=== PATIENT | male | born 1950 | race Caucasian/White ===

== ENCOUNTER 2018-02-03 06:34 | Outpatient (CLI) ==
--- NOTE | 2018-02-03 09:28 | ECHO2D ---
Date of Exam: 02/03/18 Ordering Physician: DR. DAWSON RIVERS Room #: OP Reason for Echo: LVH, HTN, CARDIOMEGALY M-Mode Normal Adult Results LV Dimensions Normal Adult Results AoV Opening excursions >1.6 >1.6 LVEDD-base- 3.5-5.8 5.3 Ao root dimensions 2.0-3.7 4.0 LVESD-base- 3.1-4.6 L. Atrium dimensions 1.9-3.8 5.6 Post. Wall thickness 0.8-1.1 1.4 IV septum (thickness) 0.7-1.2 1.4 Post. Wall excursion 0.72-1.3 NORMAL Septal motion 0.6 Systolic motion R. Ventricular cavity 1.5-2.0 NORMAL LVEF 60% 48% Paradoxical septal wall motion NORMAL 2-D : 2-D M Mode Echocardiogram was performed using apical four chamber and left parasternal long and short axis views. Mitral, tricuspid and aortic valves appear to be normal. Contractility of the left ventricle seems to be normal, so is the cavity size. Enlarged Left atrial cavity. Hypokinetic Septum. Aortic root appears to be normal. There is no pericardial effusion. There is no thrombus noted in the left ventricular or left aortic cavity. No mitral valve prolapse noted. M-MODE: MV: NORMAL AV: NORMAL TV: NORMAL PV: CHAMBER SIZE: ENLARGED LEFT ATRIAL CAVITY WALL MOTION: HYPOKINETIC SEPTUM PERICARDIUM: NORMAL INTERPRETATION: 1. LEFT VENTRICULAR HYPERTROPHY WITH ENLARGED LEFT ATRIAL CAVITY (5.6 CM2) 2. HYPOKINETIC SEPTUM WITH EJECTION FRACTION 48% 3. NORMAL VALVES MTDD
== END 2018-02-03 06:35 | disposition home or self-care (01) ==
LOC: CAR 06:34
PROVIDERS: ATTEND Internal Medicine
DX: I51.7 Cardiomegaly (principal); I10 Essential (primary) hypertension
CPT/HCPCS: 93005; 93010

== ENCOUNTER 2018-02-04 06:43 | Outpatient (CLI) | payer OTHER ==
--- NOTE | 2018-02-04 11:07 | NM ---
Cardiac Stress Test HISTORY: LVH, cardiomegaly, hypertension, shortness of breath. COMPARISON: None of this type. TECHNIQUE: Resting: The patient was injected with 3.5 mCi of thallium 201 chloride intravenously after which a "resting" SPECT study of the heart was performed. Stress: The patient was stressed using a Pacheco protocol and at the appropriate time injected with 25 mCi of 99m technetium Sestamibi (Cardiolite) after which a "stress" SPECT study of the heart was per formed. Gated images of the heart were also obtained to assess wall motion and calculate ejection fra ction. For details of the stress protocol employed, reference is made to the separate report of the performing physician. FINDINGS: The stress perfusion images demonstrate a generally uniform distribution of activity in th e left ventricular myocardium. There is modestly decreased activity in a small segment of the distal anterior wall in the apex with equivocal redistribution at rest. The resting perfusion images demonst rate no evidence of significant redistribution/ischemia elsewhere. The left ventricular ejection fraction (LVEF) is 58 %. IMPRESSION: 1. Left ventricular myocardial perfusion demonstrates a small region of equivocal redistribution in the distal anterior wall near the apex. 2. The left ventricular ejection fraction (LVEF) is 58 %.
== END 2018-02-04 06:44 | disposition home or self-care (01) ==
LOC: CAR 06:43
PROVIDERS: ATTEND Internal Medicine
DX: R06.02 Shortness of breath (principal); I10 Essential (primary) hypertension; I51.7 Cardiomegaly

== ENCOUNTER 2018-02-24 07:19 | Day surgery (SDC) | payer OTHER ==
[2018-02-24 07:51] VITALS: TEMP 98.6
[2018-02-24] MEDS ORDERED: VERSED ONE (09:49)
[2018-02-24] MEDS ORDERED: DIPRIVAN 20 ML VIAL IVP ONE (09:49)
--- NOTE | 2018-02-25 09:35 | OP ---
INDICATIONS FOR PROCEDURE: 67-year-old gentleman presents for colonoscopy exam. He has a past history of adenomatous polyps with the last colonoscopy greater than 3 years ago. MEDICATIONS: SEE ANESTHESIA NOTES. PROCEDURE: COLONOSCOPY, SNARE POLYPECTOMY. REPORT: The risks, benefits, alternatives and limitations were discussed in detail with the patient. Informed consent was obtained. After adequate sedation was achieved, a digital rectal exam revealed good tone, no masses. The colonoscope was introduced into the rectum and advanced under direct visual guidance to the cecum. The cecum was identified by the appendiceal orifice and IC valve. I then slowly withdrew the scope in a circumferential manner examining the mucosa quite carefully. I looked on the proximal and distal side of folds and flexures as best as possible. I was able to retroflex the scope in the right colon and left colon to increase visualization. In the ascending colon and proximal transverse colon I encountered three polyps. These were all semi sessile and ranged from 6 to 7 mm approximately. The three polyps were removed by snare technique and placed in the same pathology jar. In the distal transverse colon there was a 7 mm semi sessile polyp that I removed by snare technique. On retroflex view of the anal canal there were small internal hemorrhoids. No other abnormalities were noted. The prep was good. The withdrawal time is 18 minutes. The patient tolerated the procedure well with stable vital signs and pulse oximetry throughout. IMPRESSION: 1. FOUR (4) POLYPS REMOVED 2. INTERNAL HEMORRHOIDS RECOMMENDATIONS: 1. High fiber diet. 2. Office visit as needed. 3. Await pathology results. If everything is benign as expected, will recommend repeat colonoscopy examination again in three years, sooner if signs or symptoms would indicate otherwise. CC: DR. SILVESTRE CAAL
[2018-02-26 11:56] VITALS: BP 123/56
== END 2018-02-24 11:30 | disposition home or self-care (01) ==
LOC: SURG 07:19
PROVIDERS: ATTEND Internal Medicine Gastroenterology
DX: Z86.010 Personal history of colon polyps (principal); K63.5 Polyp of colon; D12.2 Benign neoplasm of ascending colon; D12.3 Benign neoplasm of transverse colon

== ENCOUNTER 2018-04-02 08:20 | Outpatient (CLI) ==
--- NOTE | 2018-04-02 09:01 | DI ---
EXAM: Threeviews of the thoracic spine. History: Thoracic back pain. Findings: No acute fracture or subluxation of the thoracic spine. Mild to moderate multilevel disc space narrowing with endplate sclerosis and a few prominent anterior osteophytes. Atherosclerotic va scular calcifications. Impression: 1. No acute osseous abnormality of the thoracic spine. 2. Mild to moderate degenerative disc disease
--- NOTE | 2018-04-02 09:04 | US ---
EXAM: Renal ultrasound. History: Back pain, diabetes. Comparison: CT abdomen pelvis 03/28/2014 Technique: Multiple sonographic images through the kidneys were obtained. Color duplex Doppler was used to interrogate vascular flow. Findings: Neither ureteral jet was visualized within the bladder. Bladder wall is thickened anteriorly. The right kidney measures 12 cm in long length demonstrating normal cortical echogenicity without gisela dence for hydronephrosis or shadowing calculus. 1.5 cm anechoic right renal cyst. The left kidney measures 11.4 cm in long length demonstrating normal cortical echogenicity without ev idence for hydronephrosis, mass or shadowing calculus. Impression: 1. No hydronephrosis. 2. Simple right renal cyst. 3. Nonspecific anterior bladder wall thickening could be due to cystitis or malignancy. Further hansel luation recommended.
== END 2018-04-02 08:21 | disposition home or self-care (01) ==
LOC: RAD 08:20
PROVIDERS: ATTEND Internal Medicine
DX: M54.9 Dorsalgia, unspecified (principal); E11.9 Type 2 diabetes mellitus without complications

== ENCOUNTER 2018-04-08 10:59 | Outpatient (CLI) | payer OTHER | END 2018-04-08 11:00 | disposition home or self-care (01) | LOC: LAB 10:59 | PROVIDERS: ATTEND Internal Medicine | DX: N32.9 Bladder disorder, unspecified (principal) | CPT/HCPCS: 81001; 81050; 82575; 84156 ==

== ENCOUNTER 2018-05-31 12:56 | Inpatient (IN) ==
--- NOTE | 2018-05-31 13:08 | ED.PDOC ---
General ED Provider: Dr. ERYN WALLS Chief Complaint: Arrhythmia Stated Complaint: Pause in Heart Rate. Was undergoing work up for episodes of dizziness, near syncopal attacks so was hooked up to an event monitor. Apparently monitor company noted a cardiac event this morning around 0630 in which there was a 3 sec pause. Asymptomatic as he was sleeping. PMHx.Chronic afib with controlled Vent Response. Several episodes of Severe Vertigo, dizziness and near syncopal/total syncopal events. Events associated with nausea, vomiting and loss of bladder control. States previous Cardiac Cath normal. No previous cardiac E study completed. Dr Rivers advised pt to come to ER for assessment Time Seen by Physician: 13:05 Mode of Arrival: Walk-In Information Source: Patient, Family Exam Limitations: No limitations Primary Care Provider: DAWSON RIVERS Referred to ED by: PCP, Other Nursing and Triage Documentation Reviewed and Agree: Yes Does patient meet sepsis criteria?: No System Inflammatory Response Syndrome: Not Applicable Sepsis Protocol: For patient's 13 years and over: Temp is 96.8 and below OR 101 and greater Pulse >90 BPM Resp >20/minute Acutely Altered Mental Status Are patient's symptoms suggestive of a new infection, such as: -Pneumonia -Skin, Soft Tissue -Endocarditis -UTI -Bone, Joint Infection -Implantable Device -Acute Abdominal Infection -Wound Infection -Meningitis -Blood Stream Catheter Infection -Unknown Cardiovascular Complaint Exam - Palpitations Complaint/Exam Onset/Duration: Several months Symptoms Are: Still present Timing: Intermittent Initial Severity: Moderate Current Severity: Mild Character: Reports: Irregular, Skipped beats Aggravating: Reports: Exertion, Position Alleviating: Reports: None Associated Signs and Symptoms: Reports: Lightheadedness, Dizziness, Syncope, Shortness of breath, Nausea Related History: Similar episode Related Surgical History: Reports: None Review of Systems - Review Of Systems Constitutional: Reports: No symptoms Eyes: Reports: No symptoms Ears, Nose, Mouth, Throat: Reports: No symptoms Respiratory: Reports: No symptoms, Other Cardiac: Reports: Irregular heart rate, Lightheadedness, Palpitations, Syncope GI: Reports: No symptoms : Reports: No symptoms Musculoskeletal: Reports: No symptoms Skin: Reports: No symptoms Neurological: Reports: No symptoms Endocrine: Reports: No symptoms Hematologic/Lymphatic: Reports: No symptoms All Other Systems: Reviewed and Negative Past Medical History - Past Medical History Endocrine: Reports: DM 2, Dyslipidemia Cardiovascular: Reports: Hypertension, CHF, A-Fib Respiratory: Reports: None Hematological: Reports: None Gastrointestinal: Reports: None Genitourinary: Reports: None Neuro/Psych: Reports: None Musculoskeletal: Reports: None Cancer: Reports: None - Surgical History General Surgical History: Reports: Unknown - Family History Family History: Reports: Unknown - Social History Hx Substance Use: No Physical Exam - Physical Exam Appearance: Well-appearing, No pain distress, Well-nourished Eyes: KENNY, EOMI, Conjunctiva clear ENT: Ears normal, Nose normal, Oropharynx normal Respiratory: Airway patent, Breath sounds clear, Breath sounds equal, Respirations nonlabored Cardiovascular: RRR, Pulses normal, No rub, No murmur GI/: Soft, Nontender, No masses, Bowel sounds normal, No Organomegaly Musculoskeletal: Normal strength, ROM intact, No edema, No calf tenderness Skin: Warm, Dry, Normal color Neurological: Sensation intact, Motor intact, Reflexes intact, Cranial nerves intact, Alert, Oriented Psychiatric: Affect appropriate, Mood appropriate Critical Care Note - Critical Care Note Total Time (mins): 60 Course - Course Hematology/Chemistry: 05/31/18 13:30 05/31/18 13:30 Orders, Labs, Meds: Lab Review 05/31/18 05/31/18 05/31/18 13:30 13:30 13:30 WBC 9.50 RBC 4.45 L Hgb 13.4 L Hct 39.9 L MCV 89.7 MCH 30.1 MCHC 33.6 RDW Coeff of Placido 14.1 Plt Count 223 Immature Gran % (Auto) 0.2 Neut % (Auto) 61.7 Lymph % (Auto) 30.6 [place] % (Auto) 5.6 Eos % (Auto) 1.4 Baso % (Auto) 0.5 Immature Gran # (Auto) 0.0 Neut # (Auto) 5.9 Lymph # (Auto) 2.9 [place] # (Auto) 0.5 Eos # (Auto) 0.1 Baso # (Auto) 0.1 PT INR Sodium 137.0 Potassium 4.04 Chloride 101.3 Carbon Dioxide 28.2 Anion Gap 11.54 BUN 25.1 H Creatinine 1.33 H Estimated GFR (MDRD) 54.00 BUN/Creatinine Ratio 18.87 Glucose 139.3 H Calcium 9.20 Magnesium Total Bilirubin 0.66 AST 30.4 ALT 23.4 Alkaline Phosphatase 31.7 L Troponin I Total Protein 7.56 Albumin 4.16 Globulin 3.40 Albumin/Globulin Ratio 1.22 Digoxin < 0.40 L 05/31/18 05/31/18 13:30 13:30 WBC RBC Hgb Hct MCV MCH MCHC RDW Coeff of [place]acido Plt Count Immature Gran % (Auto) Neut % (Auto) Lymph % (Auto) [place] % (Auto) Eos % (Auto) Baso % (Auto) Immature Gran # (Auto) Neut # (Auto) Lymph # (Auto) [place] # (Auto) Eos # (Auto) Baso # (Auto) PT 19.5 H INR 1.99 Sodium Potassium Chloride Carbon Dioxide Anion Gap BUN Creatinine Estimated GFR (MDRD) BUN/Creatinine Ratio Glucose Calcium Magnesium 1.53 L Total Bilirubin AST ALT Alkaline Phosphatase Troponin I < 0.012 Total Protein Albumin Globulin Albumin/Globulin Ratio Digoxin Orders Category Date Time Status EKG-(ED ONLY) Stat CARDIO 05/31/18 13:31 Completed CBC W/ AUTO DIFF Stat LAB 05/31/18 13:30 Completed CMP [COMPREHENSIVE METABOLIC PANEL] Stat LAB 05/31/18 13:30 Completed DIGOXIN Stat LAB 05/31/18 13:30 Completed MAGNESIUM Stat LAB 05/31/18 13:30 Completed PT WITH INR Stat LAB 05/31/18 13:30 Completed TROPONIN I Stat LAB 05/31/18 13:30 Completed CHEST, 1V AP ONLY Stat RADS 05/31/18 13:33 Completed Vital Signs: Temp Pulse Resp BP Pulse Ox 05/31/18 12:57 98.4 F 78 20 174/89 H 94 L INGRID Risk Score INGRID Risk Score: Risk Score Odds of by 30D 0 0.1 (0.1-0.2) 1 0.3 (0.2-0.3) 2 0.4 (0.3-0.5) 3 0.7 (0.6-0.9) 4 1.2 (1.0-1.5) 5 2.2 (1.9-2.6) 6 3.0 (2.5-3.6) 7 4.8 (3.8-6.1) Departure - Departure Time of Disposition: 15:30 Disposition: ADMITTED INPATIENT Discharge Problem: Intermittent complete heart block, Atrial fibrillation, Hx of syncope Condition: Good Pt referred to PMD for follow-up: Yes IPMP verified?: Yes Allergies/Adverse Reactions: Allergies cortisone [Cortisone] Adverse Reaction (Verified 05/31/18 13:16) Penicillins Adverse Reaction (Verified 05/31/18 13:16) Home Medications: Ambulatory Orders Digoxin 250 mcg PO DAILY 07/12/13 Enalapril Maleate 2.5 mg PO DAILY 07/12/13 Fenofibrate 160 mg PO DAILY 07/12/13 Furosemide [Lasix] 40 mg PO DAILY 07/12/13 Hydrocodone Bit/Acetaminophen [[place]omer 10-325] 1 tab PO BID PRN 07/12/13 Metformin HCl 1,000 mg PO DAILY 07/12/13 Simvastatin 20 mg PO DAILY 07/12/13 Warfarin Sodium [Coumadin] 6 mg PO DAILY 07/12/13 Insulin Degludec [Tresiba Flextouch U-100] 100 unit SQ DIRECTED 05/31/18 Ranitidine HCl [Zantac] 150 mg PO QDAC 05/31/18 Sitagliptin Phosphate [Januvia] 100 mg PO DAILY 05/31/18 Disposition Discussed With: Patient, Family, Other (Dr Rivers discussed case- requests admisson to observe for additional cardiac pauses)
--- NOTE | 2018-05-31 13:58 | DI ---
EXAM: Single view of the chest. History: Chest pain. Findings: Heart size is normal. No focal consolidation. No appreciable pleural fluid and no pneumo thorax. No acute osseous abnormalities. Impression: No acute cardiopulmonary process
[2018-05-31] MEDS ORDERED: TYLENOL PO PRN (16:43)
[2018-05-31] MEDS ORDERED: NORCO 10-325 PO PRN (16:51)
[2018-05-31] MEDS ORDERED: NON-FORMULARY MEDICATION (Insulin Degludec [Tresiba Flextouch U-100] 100 UNIT) SQ SCH (17:00)
[2018-05-31] MEDS ORDERED: LOVENOX SUBCUT SCH (17:00)
[2018-05-31] MEDS ORDERED: NON-FORMULARY MEDICATION (Warfarin Sodium [Coumadin] 6 MG) PO SCH (17:00)
[2018-05-31 17:55] VITALS: BMI 33.3
[2018-05-31] MEDS ORDERED: COUMADIN ONE (18:35)
[2018-05-31] MEDS ORDERED: OMEGA-3 FISH OIL ONE (20:01)
[2018-05-31] MEDS ORDERED: ZYLOPRIM ONE (20:01)
[2018-05-31] MEDS ORDERED: NORCO 5-325 ONE (20:01)
[2018-05-31] MEDS ORDERED: K-DUR ONE (20:01)
[2018-05-31] MEDS ORDERED: LYRICA ONE (20:02)
[2018-05-31] MEDS ORDERED: SOLU-MEDROL 125 MG ONE (20:02)
[2018-05-31] MEDS ORDERED: SYMBICORT 160-4.5 MCG INHALER IH ONE (20:02)
[2018-05-31] MEDS ORDERED: ANTIVERT ONE (20:02)
[2018-06-01] MEDS ORDERED: NON-FORMULARY MEDICATION (Metformin Hcl [Metformin Hcl] 1,000 MG) PO SCH (09:00)
[2018-06-01] MEDS ORDERED: ENALAPRIL MALEATE 2.5 MG PO SCH (09:00)
[2018-06-01] MEDS ORDERED: NON-FORMULARY MEDICATION (Sitagliptin Phosphate [Januvia] 100 MG) PO SCH (09:00)
[2018-06-01] MEDS ORDERED: NON-FORMULARY MEDICATION (Simvastatin [Simvastatin] 20 MG) PO SCH (09:00)
[2018-06-01] MEDS: LASIX TAB PO SCH (09:18)
[2018-06-01] MEDS: VASOTEC PO SCH (09:18)
[2018-06-01] MEDS: JANUVIA PO SCH (09:18)
[2018-06-01] MEDS: GLUCOPHAGE PO SCH (09:18)
[2018-06-01] MEDS: ZOCOR PO SCH (09:19)
[2018-06-01] MEDS: COUMADIN PO SCH (09:19)
[2018-06-01] MEDS: NON-FORMULARY MEDICATION (Insulin Degludec [Tresiba Flextouch U-100] 100 UNIT) SQ SCH (10:01)
--- NOTE | 2018-06-01 12:50 | PCM.PROG ---
Attending Provider: ATTENDING PROVIDER: Dr. DAWSON RIVERS This patient is seen with Dania Castanon, Nurse Practitioner. DATE OF SERVICE: 06/01/18 SUBJECTIVE: This 67 year old WHITE/ M was hospitalized 05/31/18. The patient is resting comfortably. There was a three second pause noted while the patient was at home and sleeping, therefore he was asymptomatic. Over last two month he has had two episodes with nausea, vomit and loss of bowel. He is now wearing cardiac event monitor for 30 days. He has a history of atrial fibrillation. REVIEW OF SYSTEMS: CONSTITUTIONAL: No night sweats. No fatigue, malaise, lethargy. No fever or chills. HEENT: Eyes: No visual changes. No eye pain. No eye discharge. ENT: No runny nose. No epistaxis. No sinus pain. No odynophagia. No congestion. RESPIRATORY: No cough, no congestion. No hemoptysis. No shortness of breath. CARDIOVASCULAR: No angina symptoms. No CHF symptoms. No atypical chest pain for CAD. No palpitations. No orthopnea.. GASTROINTESTINAL: No abdominal pain. No nausea or vomiting. No diarrhea or constipation. No hematemesis. No hematochezia. GENITOURINARY: No urgency. No frequency. No dysuria. No hematuria. No obstructive symptoms. No discharge. No pain. No significant abnormal bleeding. MUSCULOSKELETAL: No musculoskeletal pain; no joint swelling. Episodes of weakness. NEUROLOGICAL: Awake, alert, oriented to time, place and person. No headache. No neck pain. No syncope. No seizures. No dizziness. PSYCHIATRIC: Not anxious. No depression. No suicidal thoughts. No homicidal thoughts. SKIN: No rash. No lesions. No wounds. ENDOCRINE: No unexplained weight loss. No weight gain. HEMATOLOGIC/LYMPHATIC: No anemia. No purpura. No petechiae. No prolonged or excessive bleeding. No palpable lymph nodes. PHYSICAL EXAMINATION: GENERAL: The patient is awake, alert and oriented, lying/sitting in bed in no distress. VITAL SIGNS: Temperature 97.8 F, Pulse 55, Respiratory Rate 18, BP 93/56, Pulse Ox 98% HEENT: Head normocephalic, atraumatic. Eyes: Extraocular muscles are intact. Pupils are equal, round and reactive to light and accommodation. Ears: No lesions. Nose appeared normal. Throat: No exudate or erythema. NECK: Supple. No JVD, no carotid bruit. No lymphadenopathy or thyromegaly. LUNGS: Clear to auscultation. Percussion note normal. Chest symmetrical. HEART: Irregular rate rate. S1, S2, no S3. No murmurs. No cyanosis or clubbing. No ascites. Pulses: Dorsalis pedis and posterior tibial pulses +1 to +2 both sides. ABDOMEN: Soft. Non-tender. Bowel sounds active. No CVA tenderness. No mass felt. EXTREMITIES: No edema. Full range of motion of all extremities, equal. NEUROLOGIC: No focal deficit. Cranial nerves II through XII are grossly intact. No headache, no double vision or headache. SKIN: Not dry. Intact. Turgor-normal. LYMPHATIC: No palpable lymph nodes/no lymphedema. MUSCULOSKELETAL: Normal joints with no swelling. Muscle tone is normal. LAB REVIEW: 06/01/18 06:42 06/01/18 06:42 06/01/18 06:42: PT 20.5 H, INR 2.09 06/01/18 06:42: Sodium 136.2, Potassium 3.65, Chloride 101.9, Carbon Dioxide 30.0, Anion Gap 7.95, BUN 20.6 H, Creatinine 1.20 H, Estimated GFR (MDRD) 61.00 , BUN/Creatinine Ratio 17.16, Glucose 120.3 H, Calcium 8.57, Total Bilirubin 0.68, AST 25.0, ALT 19.3, Alkaline Phosphatase 24.8 L, Troponin I < 0.012, Total Protein 6.61, Albumin 3.53, Globulin 3.08, Albumin/Globulin Ratio 1.14 06/01/18 06:42: WBC 7.74, RBC 4.24 L, Hgb 12.6 L, Hct 38.0 L, MCV 89.6, MCH 29.7 , MCHC 33.2, RDW Coeff of Placido 14.1, Plt Count 207, Immature Gran % (Auto) 0.1, Neut % (Auto) 52.6, Lymph % (Auto) 39.0, [place] % (Auto) 5.9, Eos % (Auto) 1.9, Baso % (Auto) 0.5, Immature Gran # (Auto) 0.0, Neut # (Auto) 4.1, Lymph # (Auto ) 3.0, [place] # (Auto) 0.5, Eos # (Auto) 0.2, Baso # (Auto) 0.0 05/31/18 22:40: Troponin I < 0.012 05/31/18 13:30: Magnesium 1.53 L, Troponin I < 0.012 05/31/18 13:30: PT 19.5 H, INR 1.99 05/31/18 13:30: Digoxin < 0.40 L 05/31/18 13:30: Sodium 137.0, Potassium 4.04, Chloride 101.3, Carbon Dioxide 28.2, Anion Gap 11.54, BUN 25.1 H, Creatinine 1.33 H, Estimated GFR (MDRD) 54.00 , BUN/Creatinine Ratio 18.87, Glucose 139.3 H, Calcium 9.20, Total Bilirubin 0.66, AST 30.4, ALT 23.4, Alkaline Phosphatase 31.7 L, Total Protein 7.56, Albumin 4.16, Globulin 3.40, Albumin/Globulin Ratio 1.22 05/31/18 13:30: WBC 9.50, RBC 4.45 L, Hgb 13.4 L, Hct 39.9 L, MCV 89.7, MCH 30.1 , MCHC 33.6, RDW Coeff of Placido 14.1, Plt Count 223, Immature Gran % (Auto) 0.2, Neut % (Auto) 61.7, Lymph % (Auto) 30.6, [place] % (Auto) 5.6, Eos % (Auto) 1.4, Baso % (Auto) 0.5, Immature Gran # (Auto) 0.0, Neut # (Auto) 5.9, Lymph # (Auto ) 2.9, [place] # (Auto) 0.5, Eos # (Auto) 0.1, Baso # (Auto) 0.1 ASSESSMENT: Please see below. 1. Atrial fibrillation with intermittent pauses 2. Positive stress test in January, refused Cardiac Cath 3. Currently awaiting appointment with [facility] 4. Hypertension 5. Diabetes Mellitus, type 2 PLAN: 1. Continue holding Digoxin 2. T4/TSH 3. D/C Holter monitor Plan and coordination of the patient's care discussed in the presence of Cattyman and nurse. SCRIBED BY: FLORIN MCKEON Mineral Surveying Technician scribed while in presence of service performed by Dr. Rivers/Dania Castanon APRN on 06/01/18 ([id number])
[2018-06-01] MEDS ORDERED: COUMADIN PO SCH (17:00)
[2018-06-02] MEDS: LASIX TAB PO SCH (05:46)
[2018-06-02] MEDS: NON-FORMULARY MEDICATION (Insulin Degludec [Tresiba Flextouch U-100] 100 UNIT) SQ SCH (08:19)
[2018-06-02] MEDS: VASOTEC PO SCH (08:21)
[2018-06-02] MEDS: GLUCOPHAGE PO SCH (08:21)
[2018-06-02] MEDS: ZOCOR PO SCH (08:21)
[2018-06-02] MEDS: JANUVIA PO SCH (08:21)
[2018-06-02] MEDS: COUMADIN PO SCH (08:22)
[2018-06-03] MEDS: LASIX TAB PO SCH (05:47)
[2018-06-03 06:19] VITALS: BP 102/66; TEMP 97.8
--- NOTE | 2018-06-03 09:27 | PCM.PROG ---
Attending Provider: ATTENDING PROVIDER: Dr. DAWSON RIVERS This patient is seen with Dania Castanon, Nurse Practitioner. DATE OF SERVICE: 06/03/18 SUBJECTIVE: This 67 year old WHITE/ M was hospitalized 05/31/18. The patient is resting comfortably. Telemetry showed two pauses greater than 3 seconds. The patient has been eating well. The patient has been asymptomatic since admission. He has an appointment with business travel consultant this Friday. REVIEW OF SYSTEMS: CONSTITUTIONAL: No night sweats. No fatigue, malaise, lethargy. No fever or chills. HEENT: Eyes: No visual changes. No eye pain. No eye discharge. ENT: No runny nose. No epistaxis. No sinus pain. No odynophagia. No congestion. RESPIRATORY: No cough, no congestion. No hemoptysis. No shortness of breath. CARDIOVASCULAR: No angina symptoms. No CHF symptoms. No atypical chest pain for CAD. No palpitations. No orthopnea.. GASTROINTESTINAL: No abdominal pain. No nausea or vomiting. No diarrhea or constipation. No hematemesis. No hematochezia. GENITOURINARY: No urgency. No frequency. No dysuria. No hematuria. No obstructive symptoms. No discharge. No pain. No significant abnormal bleeding. MUSCULOSKELETAL: No musculoskeletal pain; no joint swelling. NEUROLOGICAL: Awake, alert, oriented to time, place and person. No headache. No neck pain. No syncope. No seizures. No dizziness. PSYCHIATRIC: Not anxious. No depression. No suicidal thoughts. No homicidal thoughts. SKIN: No rash. No lesions. No wounds. ENDOCRINE: No unexplained weight loss. No weight gain. HEMATOLOGIC/LYMPHATIC: No anemia. No purpura. No petechiae. No prolonged or excessive bleeding. No palpable lymph nodes. PHYSICAL EXAMINATION: GENERAL: The patient is awake, alert and oriented, lying in bed in no distress. VITAL SIGNS: Temperature 97.8 F, Pulse 64, Respiratory Rate 22, BP 102/66, Pulse Ox 98% HEENT: Head normocephalic, atraumatic. Eyes: Extraocular muscles are intact. Pupils are equal, round and reactive to light and accommodation. Ears: No lesions. Nose appeared normal. Throat: No exudate or erythema. NECK: Supple. No JVD, no carotid bruit. No lymphadenopathy or thyromegaly. LUNGS: Clear to auscultation. Percussion note normal. Chest symmetrical. HEART: Irregular heart rate. S1, S2, no S3. No murmurs. No cyanosis or clubbing. No ascites. Pulses: Dorsalis pedis and posterior tibial pulses +1 to +2 both sides. ABDOMEN: Soft. Non-tender. Bowel sounds active. No CVA tenderness. No mass felt. EXTREMITIES: No edema. Full range of motion of all extremities, equal. NEUROLOGIC: No focal deficit. Cranial nerves II through XII are grossly intact. No headache, no double vision or headache. SKIN: Not dry. Intact. Turgor-normal. LYMPHATIC: No palpable lymph nodes/no lymphedema. MUSCULOSKELETAL: Normal joints with no swelling. Muscle tone is normal. LAB REVIEW: 06/03/18 04:50 06/03/18 04:50 06/03/18 04:50: Sodium 138.3, Potassium 3.82, Chloride 105.0, Carbon Dioxide 28.8, Anion Gap 8.32, BUN 18.8, Creatinine 1.17 H, Estimated GFR (MDRD) 62.00, BUN/Creatinine Ratio 16.06, Glucose 118.7 H, Calcium 8.50, Total Bilirubin 0.40 , AST 19.1, ALT 17.8, Alkaline Phosphatase 24.6 L, Total Protein 6.43, Albumin 3.56, Globulin 2.87, Albumin/Globulin Ratio 1.24 06/03/18 04:50: WBC 9.11, RBC 4.22 L, Hgb 12.4 L, Hct 38.3 L, MCV 90.8, MCH 29.4 , MCHC 32.4, RDW Coeff of [place]ac[place] 13.9, Plt Count 207, Immature Gran % (Auto) 0.3, Neut % (Auto) 53.4, Lymph % (Auto) 38.4, [place] % (Auto) 5.9, Eos % (Auto) 1.6, Baso % (Auto) 0.4, Immature Gran # (Auto) 0.0, Neut # (Auto) 4.9, Lymph # (Auto ) 3.5 H, [place] # (Auto) 0.5, Eos # (Auto) 0.2, Baso # (Auto) 0.0 ASSESSMENT: Please see below. 1. Atrial fibrillation with intermittent pauses 2. Near syncopal episode 3. 3rd degree heart block 4. Coronary artery disease previously refused Cath. 5. Hypertension 6. Diabetes Mellitus, type 2 PLAN: 1. No Digoxin 2. No driving 3. Appointment with [facility] Friday at 930 4. Continue 30 day cardiac event monitoring 5. Discharge home. Plan and coordination of the patient's care discussed in the presence of Internal Affairs Investigator and nurse. SCRIBED BY: FLORIN MCKEON Metal Box Maker scribed while in presence of service performed by Dr. Rivers/Dania Castanon APRN on 06/03/18 ([id number])
[2018-06-03] MEDS: JANUVIA PO SCH (09:59)
[2018-06-03] MEDS: NON-FORMULARY MEDICATION (Insulin Degludec [Tresiba Flextouch U-100] 100 UNIT) SQ SCH (09:59)
[2018-06-03] MEDS: ZOCOR PO SCH (10:00)
[2018-06-03] MEDS: GLUCOPHAGE PO SCH (10:00)
[2018-06-03] MEDS: VASOTEC PO SCH (10:00)
[2018-06-03] MEDS: COUMADIN PO SCH (10:04)
--- NOTE | 2018-06-03 11:53 | CM.DICTOOL ---
ADMISSION: 05/31/18 16:16 DISCHARGE: 2018 DATE OF SERVICE: 06/03/18 FINAL DIAGNOSIS A-FIB WITH INTERMITTENT PAUSES (2 TO 3.5 SECONDS) H/O SYNCOPAL EPISODES H/O POSITIVE STRESS SESTAMIBI (REFUSED CATH) HISTORY OF: DM TYPE 2 DYSLIPIDEMIA HTN CHF S/P BILATERAL CATARACT SURGERY DATE UNKNOWN BRAIN ANEURYSM 2003 TIA X 3 DVT RIGHT LEG 2006 PNEUMONIA 2006 S/P HIATAL HERNIA REPAIR 2008 S/P CHOLECYSTECTOMY 2008 SCIATICA NON-COMPLIANCE LAST VITALS Temp Pulse Resp BP Pulse Ox 97.8 F 64 22 102/66 98 06/03/18 06:00 06/03/18 06:00 06/03/18 06:00 06/03/18 06:00 06/03/18 06:00 TAKE THESE MEDICATIONS AT HOME Hydrocodone Bitart/Acetaminophen (Bee 10-325) 1 tab PO BID PRN PRN Reason: Pain Enalapril Maleate (Vasotec) 2.5 mg PO DAILY [facility] Last Admin: 06/03/18 10:00 Dose: 2.5 mg Furosemide (Lasix Tab) 40 mg PO QDAC [facility] Last Admin: 06/03/18 05:47 Dose: 40 mg Metformin HCl (Glucophage) 1,000 mg PO DAILYWM [facility] Last Admin: 06/03/18 10:00 Dose: 1,000 mg Non-Formulary Medication (Insulin Degludec [Tresiba Flextouch U-100]) 100 unit SQ DAILY [facility] Last Admin: 06/03/18 09:59 Dose: 55 unit Simvastatin (Zocor) 20 mg PO DAILY [facility] Last Admin: 06/03/18 10:00 Dose: 20 mg Sitagliptin Phosphate (Januvia) 100 mg PO DAILY [facility] Last Admin: 06/03/18 09:59 Dose: 100 mg Fenofibrate 160 mg PO DAILY [facility] Last Admin: Zantac 150 mg PO QDAC Last Admin: Warfarin Sodium (Coumadin) 6 mg PO 0900 [facility] Last Admin: 06/03/18 10:04 Dose: 6 mg ALLERGIES cortisone [Cortisone] Adverse Reaction (Verified 05/31/18 13:16) Penicillins Adverse Reaction (Verified 05/31/18 13:16) DISCONTINUED MEDICATIONS DIGOXIN (LANOXIN) NEW PRESCRIPTIONS: NONE SMOKING: NOT APPLICABLE DISEASE SPECIFIC EDUCATION: NEAR SYNCOPE MEDICATION CHANGE NO DRIVING LAB REVIEW: 06/03/18 04:50 06/03/18 04:50 06/03/18 05:20: PT 19.8 H, INR 2.02 06/03/18 04:50: Sodium 138.3, Potassium 3.82, Chloride 105.0, Carbon Dioxide 28.8, Anion Gap 8.32, BUN 18.8, Creatinine 1.17 H, Estimated GFR (MDRD) 62.00, BUN/Creatinine Ratio 16.06, Glucose 118.7 H, Calcium 8.50, Total Bilirubin 0.40 , AST 19.1, ALT 17.8, Alkaline Phosphatase 24.6 L, Total Protein 6.43, Albumin 3.56, Globulin 2.87, Albumin/Globulin Ratio 1.24 06/03/18 04:50: WBC 9.11, RBC 4.22 L, Hgb 12.4 L, Hct 38.3 L, MCV 90.8, MCH 29.4 , MCHC 32.4, RDW Coeff of Placido 13.9, Plt Count 207, Immature Gran % (Auto) 0.3, Neut % (Auto) 53.4, Lymph % (Auto) 38.4, [place] % (Auto) 5.9, Eos % (Auto) 1.6, Baso % (Auto) 0.4, Immature Gran # (Auto) 0.0, Neut # (Auto) 4.9, Lymph # (Auto ) 3.5 H, [place] # (Auto) 0.5, Eos # (Auto) 0.2, Baso # (Auto) 0.0 PLAN: DISCHARGE HOME DIET: CONSISTENT CARBOHYDATES OR CALORIE COUNT FOLLOWED AT HOME ACTIVITY: GRADUALLY RESUME TOLERATED CHANGE POSITIONS SLOWLY NO DRIVING CONTINUE TO WEAR THE 30 DAY EVENT MONITOR UNTIL TIME FOR REMOVAL PLEASE KEEP THE APPOINTMENT SCHEDULED AT [facility] FOR AT 9:30 WITH THE HAND CROCHETER DR. BRUNO AN APPOINTMENT IS SCHEDULED WITH DR. RIVERS ON AT 10:30 AM CONTINUE MEDICATIONS LISTED ON NURSING DISCHARGE INFORMATION SHEET MR. GALLEGOS IS ALERT AND ORIENTED X 3. HE OFFERS NO COMPLAINTS OF DIZZINESS, PAIN OR NAUSEA. HE VOICES UNDERSTANDING OF THE "NO DRIVING" INSTRUCTION. MR. GALLEGOS IS INDEPENDENT WITH ACTIVITIES OF DAILY LIVING AND LIVES WITH HIS . SHE IS AWARE OF THE "NO DRIVING" INSTRUCTION AND VOICES UNDERSTANDING. MR. GALLEGOS IS AMBULATORY WITHOUT ASSISTANCE. HE IS CONTINENT OF BLADDER AND BOWEL. MR. GALLEGOS HAS A GOOD APPETITE AND IS NOTED TO CONSUME 20-100% OF ALL MEALS. THE SKIN TURGOR IS GOOD, AND FREE OF DECUBITUS ULCERS, RASHES OR OPEN WOUNDS. CODE STATUS: FULL CODE DAWSON RIVERS MD LYNDSAY JONES, CALCULUS TEACHER
--- NOTE | 2018-06-03 12:30 | HOLTER ---
PATIENT INFORMATION AND COMMENTS Attending Physician: 05/31/18 Indications: ATRIAL FIBRILLATION/ PAUSES/3RD DEGREE BLOCK __ Patient Medications: ZANTAC, JANUVIA, TYLENOL, NORCO, LOVENOX, LASIX, ENALAPRIL , METFORMIN, SIMVASTATIN, COUMADIN __ Pre-procedure Summary: Protocol: Standard Heart Rate Started: 05/31/18 192 Minimum: 36 BPM Weight: 248 LBS Ended: 06/01/18 1845 Maximum: 138 BPM Height: 72" Duration: 24 HOURS Average: 67 BPM _ INTERPRETATIONS/OBSERVATIONS: 1. BASIC RHYTHM: ATRIAL FIBRILLATION WITH RATE 35 BPM TO 130 BPM, AVERAGE 67 BPM 2. THREE PAUSES UP TO 3 SECONDS NOTED, LONGEST 3.4 SECONDS 3. FEW, ISOLATED PVC'S ONE RUN OF FOUR BEAT VENTRICULAR TACHYCARDIA NOTED 4. NO ST-T WAVE CHANGES FROM BASELINE 5. ACTIVITY LOG NOT MAINTAINED MTDD
--- NOTE | 2018-06-03 12:55 | PN ---
DATE OF SERVICE: 05/31/18 REASON FOR HOSPITALIZATION/HISTORY OF PRESENT ILLNESS: The patient was seen and examined in the emergency room. The patient was advised to come to the emergency room as he had a pause of 3.3 seconds on event monitor. He has history of three black out spells in past several months. Also his chest echo sestamibi was positive for reversible ischemia. The patient is going to have appointment with cut out press operator in next 3-4 days in [place]. The patient is going to be kept in the hospital under observation for 3-4 hours. The patient has a history of Diabetes Mellitus,Hypertension, Dyslipidemia, Obesity and noncompliance of his diet and to some extent medications. REVIEW OF SYSTEMS: CONSTITUTIONAL: No night sweats. No fatigue, malaise, lethargy. No fever or chills. HEENT: Eyes: No visual changes. No eye pain. No eye discharge. ENT: No runny nose. No epistaxis. No sinus pain. No sore throat. No odynophagia. No ear pain. No congestion. RESPIRATORY: No cough, no congestion. No hemoptysis. No shortness of breath. CARDIOVASCULAR: No angina symptoms. No CHF symptoms. No atypical chest pain for CAD. No palpitations. No PND. No orthopnea. GASTROINTESTINAL: No abdominal pain. No nausea or vomiting. No diarrhea or constipation. No hematemesis. No hematochezia. GENITOURINARY: No urgency. No frequency. No dysuria. No hematuria. No obstructive symptoms. No discharge. No pain. No significant abnormal bleeding. MUSCULOSKELETAL: No musculoskeletal pain. No joint swelling. No arthritis. NEUROLOGICAL: No headache. No neck pain. No syncope. No seizures. No dizziness. PSYCHIATRIC: Not anxious. No depression. No suicidal thoughts. No homicidal thoughts. SKIN: No rash. No lesions. No wounds. ENDOCRINE: No unexplained weight loss. No weight gain. HEMATOLOGIC/LYMPHATIC: No anemia. No purpura. No petechiae. No prolonged or excessive bleeding. No palpable lymph nodes. PHYSICAL EXAMINATION: GENERAL: The patient is oriented to time, place and person. VITALS: Temperature 98.4, pulse 78, respiratory rate 70, blood pressure 174/89 and pulse ox 94%. HEENT: Head normocephalic, atraumatic. Eyes: Extraocular muscles are intact. Pupils are equal, round and reactive to light and accommodation. Ears: No lesions. Nose appeared normal. Throat: No exudate or erythema. NECK: Supple. No JVD, no carotid bruit. No lymphadenopathy or thyromegaly. LUNGS: Clear to auscultation. Percussion note normal. Chest symmetrical. HEART: S1, S2, no S3. 3.3 second pause was nearly at 6:00 and patient was asleep at that time. Patient has been taken off Lanoxin for past 3-4 days. No murmurs. No cyanosis or clubbing. No ascites. Pulses: Dorsalis pedis and posterior tibial pulses +1 to +2 bilaterally. ABDOMEN: Soft. Nontender. Bowel sounds active. No CVA tenderness. No mass felt. EXTREMITIES: No edema. Full range of motion of all extremities, equal. NEUROLOGIC: No focal deficit. Cranial nerves II through XII are grossly intact. No headache, no double vision or headache. SKIN: Not dry. Intact. Turgor - normal. LYMPHATIC: No palpable lymph nodes/no lymphedema. MUSCULOSKELETAL: Normal joints with no swelling. Muscle tone is normal. LABS: Hgb 13.4, hct 39, WBC 9,500 normal differential, creatinine 1.3, BUN 25, potassium 4, INR 1.99, EGFR 54. ASSESSMENT: 1. History of syncopal episodes/ black out spells 2. Bradyarrhythmia with atrial fibrillation 3. History of positive stress sestamibi 4. Diabetes mellitus 5. Hypertension PLAN: 1. Telemetry 2. Holter again 3. The patient is off Lanoxin CONDITION: Stable. TIME SPENT MORE THAN: 30 minutes MTDD
--- NOTE | 2018-06-03 12:59 | PN ---
DATE OF SERVICE: 06/01/18 SUBJECTIVE: The patient was admitted with pause of 3.3 second and has atrial fibrillation. So far the patient didn't have any pauses. He has Holter Monitor. He doesn't have any symptoms of CHF or coronary insufficiency. His rate is around 80 average. He is feeling good. REVIEW OF SYSTEMS: CONSTITUTIONAL: No night sweats. No fatigue, malaise, lethargy. No fever or chills. HEENT: Eyes: No visual changes. No eye pain. No eye discharge. ENT: No runny nose. No epistaxis. No sinus pain. No sore throat. No odynophagia. No congestion. RESPIRATORY: No cough, no congestion. No hemoptysis. No shortness of breath. CARDIOVASCULAR: No angina symptoms. No CHF symptoms. No atypical chest pain for CAD. No palpitations. No orthopnea. GASTROINTESTINAL: No abdominal pain. No nausea or vomiting. No diarrhea or constipation. No hematemesis. No hematochezia. GENITOURINARY: No urgency. No frequency. No dysuria. No hematuria. No obstructive symptoms. No discharge. No pain. No significant abnormal bleeding. MUSCULOSKELETAL: No musculoskeletal pain; no joint swelling. NEUROLOGICAL: No headache. No neck pain. No syncope. No seizures. No dizziness. PSYCHIATRIC: Not anxious. No depression. No suicidal thoughts. No homicidal thoughts. SKIN: No rash. No lesions. No wounds. ENDOCRINE: No unexplained weight loss. No weight gain. HEMATOLOGIC/LYMPHATIC: No anemia. No purpura. No petechiae. No prolonged or excessive bleeding. No palpable lymph nodes. PHYSICAL EXAMINATION: GENERAL: The patient is oriented to time, place and person. VITAL SIGNS: Temperature 97.8, pulse 55, respiratory rate 18, blood pressure 100/70 and pulse ox 98%. HEENT: Head normocephalic, atraumatic. Eyes: Extraocular muscles are intact. Pupils are equal, round and reactive to light and accommodation. Ears: No lesions. Nose appeared normal. Throat: No exudate or erythema. NECK: Supple. No JVD, no carotid bruit. No lymphadenopathy or thyromegaly. LUNGS: Clear to auscultation. Percussion note normal. Chest symmetrical. HEART: S1, S2, no S3. No murmurs. No cyanosis or clubbing. No ascites. Pulses: Dorsalis pedis and posterior tibial pulses +1 to +2 both sides. ABDOMEN: Soft. Nontender. Bowel sounds active. No CVA tenderness. No mass felt. EXTREMITIES: No edema. Full range of motion of all extremities, equal. NEUROLOGIC: No focal deficit. Cranial nerves II through XII are grossly intact. No headache, no double vision or headache. SKIN: Not dry. Intact. Turgor - normal. LYMPHATIC: No palpable lymph nodes/no lymphedema. MUSCULOSKELETAL: Normal joints with no swelling. Muscle tone is normal. ASSESSMENT: 1. Syncopal episodes/ black out likely from bradyarrhythmias. 2. Atrial fibrillation 3. Diabetes mellitus 4. Hypertension PLAN: 1. Continue monitoring Holter Monitor 2. Continue even monitor. 3. Friday he is to see professor of forestry CONDITION: Stable. TIME SPENT: More than 30 minutes. Plan and coordination of the patient's care discussed in the presence of nurse. TEN
--- NOTE | 2018-06-03 14:10 | HP ---
DATE OF SERVICE: 05/31/18 HISTORY OF PRESENT ILLNESS: This is a 67-year-old white male who has been undergoing workup for episodes of dizziness, near syncope. He has been recently put on a 30 day cardiac event monitor. While wearing this the company noted that he had three second pause and he was called and instructed to come to the emergency room. PAST MEDICAL HISTORY: Atrial fibrillation now with intermittent pauses on Coumadin Third degree heart block, positive stress test Sestamibi 02/17 - he refused cardiac cath at that time Diabetes mellitus type 2 Dyslipidemia Hypertension History of CHF TIA History of DVT in the right leg Sciatica PAST SURGICAL HISTORY: Bilateral cataract Brain aneurysm surgery 2003 Hiatal hernia repair Cholecystectomy REVIEW OF SYSTEMS: CONSTITUTIONAL: Positive for episodes of weakness. No night sweats. No fatigue , malaise, lethargy. No fever or chills. HEENT: Eyes: No visual changes. No eye pain. No eye discharge. ENT: No runny nose. No epistaxis. No sinus pain. No sore throat. No odynophagia. No ear pain. No congestion. RESPIRATORY: No cough, no congestion. No hemoptysis. No shortness of breath. CARDIOVASCULAR: No angina symptoms. No CHF symptoms. No atypical chest pain for CAD. No palpitations. No PND. No orthopnea. GASTROINTESTINAL: No abdominal pain. No nausea or vomiting. No diarrhea or constipation. No hematemesis. No hematochezia. GENITOURINARY: No urgency. No frequency. No dysuria. No hematuria. No obstructive symptoms. No discharge. No pain. No significant abnormal bleeding. MUSCULOSKELETAL: No musculoskeletal pain. No joint swelling. No arthritis. NEUROLOGICAL: No headache. No neck pain. No syncope. No seizures. No dizziness. PSYCHIATRIC: Not anxious. No depression. No suicidal thoughts. No homicidal thoughts. SKIN: No rash. No lesions. No wounds. ENDOCRINE: No unexplained weight loss. No weight gain. HEMATOLOGIC/LYMPHATIC: No anemia. No purpura. No petechiae. No prolonged or excessive bleeding. No palpable lymph nodes. SOCIAL HISTORY: Tobacco: Yes - quit approximately 20 years ago. No alcohol use. . Lives at home with spouse. MEDICATIONS: (HOME) Coumadin 6 mg p.o. daily Simvastatin 20 mg p.o. daily Metformin 1,000 mg p.o. daily Hydrocodone/Acetaminophen one tab p.o. b.i.d. p.r.n. Furosemide 40 mg p.o. daily Fenofibrate 160 mg p.o. daily Enalapril 2.5 mg p.o. daily Digoxin 250 mcg p.o. daily Ranitidine 150 mg p.o. q.d a.c. Insulin Degludec 100 unit SQ as directed Sitagliptin 100 mg p.o. daily ALLERGIES: PENICILLINS, CORTISONE PHYSICAL EXAMINATION: HEENT: Head normocephalic, atraumatic. Eyes: Extraocular muscles are intact. Pupils are equal, round and reactive to light and accommodation. Ears: No lesions. Nose appeared normal. Throat: No exudate or erythema. NECK: Supple. No JVD, no carotid bruit. No lymphadenopathy or thyromegaly. LUNGS: Diminished breath sounds. Clear to auscultation. Percussion note normal. Chest symmetrical. HEART: Irregular heart rate consistent with atrial fibrillation. S1, S2, no S3. No murmurs. No cyanosis or clubbing. No ascites. Pulses: Dorsalis pedis and posterior tibial pulses +1 to +2 bilaterally. ABDOMEN: Soft. Nontender. Bowel sounds active. No CVA tenderness. No mass felt. EXTREMITIES: No edema. Full range of motion of all extremities, equal. NEUROLOGIC: Alert and oriented. No focal deficit. Cranial nerves II through XII are grossly intact. No headache, no double vision or headache. SKIN: Not dry. Intact. Turgor - normal. LYMPHATIC: No palpable lymph nodes/no lymphedema. MUSCULOSKELETAL: Normal joints with no swelling. Muscle tone is normal. Chest x-ray shows no acute process. Sodium 137, potassium 4.0, BUN 25, creatinine 1.33. Bili 0.66, AST 30, ALT 23, hemoglobin 13.4, hematocrit 39.9, white count 9.5, platelets 223. Digoxin less than 0.40, INR 1.9, troponin normal. ASSESSMENT: 1. ATRIAL FIBRILLATION WITH INTERMITTENT PAUSES 2. NEAR SYNCOPAL EPISODE 3. HISTORY OF POSITIVE STRESS TEST SESTAMIBI AND REFUSED CATH PLAN: 1. We will admit. 2. 24 hour holter monitor. 3. Routine telemetry. 4. Hold Digoxin. 5. Continue with cardiac event monitor. 6. Diabetic diet. 7. Sliding scale for insulin. 8. CBC, CMP daily. 9. Daily PT/INR. 10. Normal Saline at 75 cc/hr for the first 24 hours. 11. Will follow closely. TIME SPENT: More than 70 minutes. MTDD
--- NOTE | 2018-06-03 14:28 | DS ---
DATE OF SERVICE: 06/03/18 FINAL DIAGNOSIS: 1. ATRIAL FIBRILLATION WITH INTERMITTENT PAUSES (2 TO 3.5 SECONDS) 2. HISTORY OF SYNCOPAL EPISODES 3. HISTORY OF POSITIVE STRESS SESTAMIBI (REFUSED CATH) 4. HISTORY OF DIABETES MELLITUS TYPE 2 5. DYSLIPIDEMIA 6. HYPERTENSION 7. CHF 8. S/P BILATERAL CATARACT SURGERY DATE UNKNOWN 9. BRAIN ANEURYSM 2002 10. TIA TIMES THREE 11. DVT RIGHT LEG 2005 12. PNEUMONIA 2005 13. S/P HIATAL HERNIA REPAIR 2007 14. S/P CHOLECYSTECTOMY 2007 15. SCIATICA 16. NONCOMPLIANCE DISCHARGE INSTRUCTIONS: 1. Followup appointment is scheduled with Dr. Morales on June 10, 2018. 2. Please keep the appointment scheduled at [facility] for June 05, 2018 at 9:30 a.m. with the heavy mobile equipment repairer, Dr. Messina. MEDICATIONS AT DISCHARGE: Hydrocodone Bitart/Acetaminophen one tab p.o. b.i.d. p.r.n. Vasotec 2.5 mg p.o. daily MARCELA Lasix 40 mg p.o. q.d a.c. MARCELA Glucophage 1,000 mg p.o. daily with meal MARCELA Insulin Degludec 100 unit SQ daily MARCELA Zocor 20 mg p.o. daily MARCELA Januvia 100 mg p.o. daily MARCELA Fenofibrate 160 mg p.o. daily MARCELA Zantac 150 mg p.o. q.d.a.c. Coumadin 6 mg p.o. 0900 MARCELA DISCONTINUED MEDICATIONS: Digoxin (Lanoxin) NEW PRESCRIPTIONS: None DIET INSTRUCTIONS: Consistent carbohydrates or calorie count as followed at home. ACTIVITY: Gradually resume as tolerated. Change positions slowly. No driving. Continue to wear 30 day event monitor until time for removal. SMOKING: N/A DISEASE SPECIFIC EDUCATION: Near syncope Medication change No driving HOSPITAL COURSE: This 67-year-old white male who presented to the emergency room. He had been currently wearing a 30-day cardiac event monitor. He experienced a three second pause in the night while he was sleeping. He was asymptomatic. He was called by the [employer] and instructed to come to the emergency room. He has been having near syncopal episodes at home. He has a history of atrial fibrillation. He was admitted, placed on 24 hour holter monitor which showed even more frequent events greater than three second pauses. His digoxin level was within normal limits however we have decided to discontinue due to the pauses. His rate obviously has been controlled with his atrial fibrillation. INR remained therapeutic during his hospital stay. He had previously had a positive stress test in January of 2018 but had refused invasive cardiac referral for cath. He had now been agreeable and has an appointment with [facility] on Friday. We will send information with telemtry, the holter monitor and the cardiac event monitor to them for his appointment Friday. He has not had any episodic events. He has been having some pauses however he has not been symptomatic with these during his stay. Blood pressures have been stable. Heart rate controlled. Will discharge him today in stable condition. Followup with [facility] on Friday and then followup with us next week. TIME SPENT: More than 60 minutes. TEN
--- NOTE | 2018-06-08 14:07 | PN ---
DATE OF SERVICE: 06/02/18 SUBJECTIVE: 67 year old white male hospitalized with atrial fibrillation with slow ventricular response at times and history of black outs. The patient so far during the stay in the hospital the last 2-3 days has shown pauses of 3.2 and 3.4 seconds. He is practically asymptomatic otherwise these pauses were captured on Holter Monitor. The patient is also being monitored with Telemetry. His hgb is 12.2, hct 38, WBC 9,600 normal differential, creatinine 1.3, BUN 21. The patient doesn't have any symptoms of CHF or coronary insufficiency. His is present in the room. REVIEW OF SYSTEMS: CONSTITUTIONAL: No night sweats. No fatigue, malaise, lethargy. No fever or chills. HEENT: Eyes: No visual changes. No eye pain. No eye discharge. ENT: No runny nose. No epistaxis. No sinus pain. No sore throat. No odynophagia. No congestion. RESPIRATORY: No cough, no congestion. No hemoptysis. No shortness of breath. CARDIOVASCULAR: No angina symptoms. No CHF symptoms. No atypical chest pain for CAD. No palpitations. No orthopnea. GASTROINTESTINAL: No abdominal pain. No nausea or vomiting. No diarrhea or constipation. No hematemesis. No hematochezia. GENITOURINARY: No urgency. No frequency. No dysuria. No hematuria. No obstructive symptoms. No discharge. No pain. No significant abnormal bleeding. MUSCULOSKELETAL: No musculoskeletal pain; no joint swelling. NEUROLOGICAL: No headache. No neck pain. No syncope. No seizures. No dizziness. PSYCHIATRIC: Not anxious. No depression. No suicidal thoughts. No homicidal thoughts. SKIN: No rash. No lesions. No wounds. ENDOCRINE: No unexplained weight loss. No weight gain. HEMATOLOGIC/LYMPHATIC: No anemia. No purpura. No petechiae. No prolonged or excessive bleeding. No palpable lymph nodes. PHYSICAL EXAMINATION: VITALS: Temperature 98, pulse 66, respiratory rate 14, blood pressure 109/60 and pulse ox 96% on room air. HEENT: Head normocephalic, atraumatic. Eyes: Extraocular muscles are intact. Pupils are equal, round and reactive to light and accommodation. Ears: No lesions. Nose appeared normal. Throat: No exudate or erythema. NECK: Supple. No JVD, no carotid bruit. No lymphadenopathy or thyromegaly. LUNGS: Clear to auscultation. Percussion note normal. Chest symmetrical. HEART: S1, S2, no S3. No murmurs. No cyanosis or clubbing. No ascites. Pulses: Dorsalis pedis and posterior tibial pulses +1 to +2 both sides. ABDOMEN: Soft. Nontender. Bowel sounds active. No CVA tenderness. No mass felt. EXTREMITIES: No edema. Full range of motion of all extremities, equal. NEUROLOGIC: No focal deficit. Cranial nerves II through XII are grossly intact. No headache, no double vision or headache. SKIN: Not dry. Intact. Turgor - normal. LYMPHATIC: No palpable lymph nodes/no lymphedema. MUSCULOSKELETAL: Normal joints with no swelling. Muscle tone is normal. ASSESSMENT: 1. Atrial fibrillation with slow ventricular response at times with pauses nearly of 3 seconds. 2. History of syncopal episodes total of 3. PLAN: 1. Discharge the patient home tomorrow 2. He is agreeable to go to the stock drier tender on next Friday, today is Friday 3. Strongly advised not to drive or do any heavy work up. Advised to take it easy and rest at home. 4. He is off Lanoxin CONDITION: Stable. TIME SPENT: More than 30 minutes. Plan and coordination of the patient's care discussed in the presence of nurse. TEN
--- NOTE | 2018-06-08 14:37 | PN ---
DATE OF SERVICE: 06/03/18 SUBJECTIVE: The patient was seen and examined with Nurse Practitioner. The patient has no black out spells during the stay in the hospital. All of the telemetry strips examined and the patient did not have any 3.4 second pauses which was noted on the Holter Monitor. The patient is practically asymptomatic, he has deborah arrhythmias with rate dipping down to 35 per minute. In any case all the strips will be sent to marine operations coordinator that he has an appointment at [facility] on Friday the 05 of June. Cardiovascular status is stable. The patient had positive stress sestamibi. The patient is noncompliant. Advised not to drive. is present in the room. Advised to rest. CONDITION: Stable. TIME SPENT: More than 30 minutes. Plan and coordination of the patient's care discussed in the presence of nurse. TEN
== END 2018-06-03 13:30 | disposition home or self-care (01) | DRG 310 ==
LOC: ED 12:56 → MEDSURG B 16:16
PROVIDERS: ADMIT Internal Medicine; ATTEND Internal Medicine
DX: I48.91 Unspecified atrial fibrillation (principal); I44.2 Atrioventricular block, complete; I10 Essential (primary) hypertension; I50.9 Heart failure, unspecified; E11.9 Type 2 diabetes mellitus without complications; E78.5 Hyperlipidemia, unspecified; R42 Dizziness and giddiness; R55 Syncope and collapse; R06.02 Shortness of breath; R11.0 Nausea; Z91.19 Patient's noncompliance with other medical treatment and regimen
CPT/HCPCS: 36415; 80053; 80162; 82962; 83735; 84439; 84443; 84484; 85025; 85610; 93005; 93010; 93227; 99223; 99232; 99239; 99284

== ENCOUNTER 2021-05-30 10:38 | Inpatient (IN) ==
--- NOTE | 2021-05-30 11:01 | ED.PDOC ---
General ED Provider: Dr. SHABBIR RICHARDSON Chief Complaint: Respiratory Complaint Stated Complaint: Cough and congestion with some SOA today, just completing his 10 day quarantine for a positive COVID test. No chest pain. Time Seen by Provider: 05/30/21 11:01 Mode of Arrival: Walk-In Information Source: Patient Exam Limitations: No limitations Primary Care Provider: DAWSON MORALES Nursing and Triage Documentation Reviewed and Agree: Yes Does patient meet sepsis criteria?: No System Inflammatory Response Syndrome: Not Applicable Sepsis Protocol: For patient's 13 years and over: Temp is 96.8 and below OR 101 and greater Pulse >90 BPM Resp >20/minute Acutely Altered Mental Status Are patient's symptoms suggestive of a new infection, such as: -Pneumonia -Skin, Soft Tissue -Endocarditis -UTI -Bone, Joint Infection -Implantable Device -Acute Abdominal Infection -Wound Infection -Meningitis -Blood Stream Catheter Infection -Unknown Respiratory Complaint Exam Respiratory Complaint/Exam Onset/Duration: Worse today, cough, dena., SOA, no chest pain or fever. Symptoms Are: Still present Timing: Intermittent Initial Severity: Moderate Current Severity: Moderate Location: Chest Character: Reports Non-productive cough Aggravating: Reports None Alleviating: Reports None Associated Signs and Symptoms: Denies Rapid breathing, Dyspnea, Fever, Chills, Chest pain, Pleuritic chest pain, Wheezing, Hemoptysis, Dizziness, Calf pain, Calf swelling, Edema, URI, Nasal congestion, Hoarseness, Sinus discomfort, Vomiting, Sore throat, Weight loss, Decreased oral intake, Increased thirst, Increased appetite or Increased urination History of Healthcare-Acquired Pneumonia: No Related Surgical History: Reports None Pulmonary Embolism Risk Factors: None Cardiac Risk Factors: Reports Diabetes Pseudomonas Risk Factors: Reports None Tuberculosis Risk Factors: Reports None Status Asthmaticus Risk Factors: Reports None Home Oxygen Use: No Recent Stress Test: No Recent Echo/LV Function: No Current Antibiotic Use: No Current Asthma Medication Use: No Respiratory Distress: Mild Inadequate Respiratory Effort: No Dysphagia Present: No Stridor Present: No JVD Present: No Accessory Muscle Use: No Retractions: Not Present Diminished Breath Sounds: Yes Sinus Tenderness: None Grunting Respirations: No Kussmaul Respirations: No Review of Systems Review Of Systems Constitutional: Reports No symptoms Eyes: Reports No symptoms Ears, Nose, Mouth, Throat: Reports No symptoms Respiratory: Reports Cough Cardiac: Reports No symptoms GI: Reports No symptoms : Reports No symptoms Musculoskeletal: Reports No symptoms Skin: Reports No symptoms Neurological: Reports No symptoms Endocrine: Reports No symptoms Hematologic/Lymphatic: Reports No symptoms All Other Systems: Reviewed and Negative [facility] Medical History (Updated 05/30/21 @ 15:55 by SILVANA BARROS, JESSY) Afib Cataracts, bilateral COVID-19 Diabetes mellitus DVT (deep venous thrombosis) Family History Mother Diabetes FATHER Heart disease BROTHER Diabetes Social History Smokeless tobacco user: chewing tobacco Surgical History H/O hernia repair Hx of cholecystectomy Physical Exam Physical Exam Appearance: Reports Ill-appearing Ill-appearing: Moderate Pain Distress: None Eyes: Reports KENNY ENT: Reports Oropharynx normal Neck: Supple Respiratory: Reports Airway patent and Rhonchi Cardiovascular: Reports Irregular rhythm and Other (Rate around 110-120 range) GI/: Reports Soft and Nontender Musculoskeletal: Reports Normal strength and ROM intact Skin: Reports Warm and Dry Neurological: Reports Sensation intact and Motor intact Psychiatric: Reports Affect appropriate and Mood appropriate Interpretation Radiology Interpretation Radiology Interpretation By: Radiologist Radiology Results: Positive Exam Interpreted: Portable CXR Xray Comments: Mild bibas. infiltrates, likely COVID EKG Interpretation Rate: Tachy (117) Rhythm: Other (a-fib) Ectopy: None Harris: NL ST Segment: Normal Interpretation: a-fib, mild RVR Physician Notification Case Discussed Physician Notified: Dr. Morales Time of Notification: 13:00 Comments: Admit to tele, IV abx Critical Care Note Critical Care Note Total Critical Care Time (mins): 0 Course Course Hematology/Chemistry: 05/30/21 11:18 05/30/21 11:18 Orders, Labs, Meds: Lab Review 05/30/21 05/30/21 05/30/21 11:18 11:18 11:18 WBC 7.74 RBC 5.11 Hgb 14.5 Hct 45.3 MCV 88.6 MCH 28.4 MCHC 32.0 RDW Coeff of Placido 14.1 Plt Count 268 Immature Gran % (Auto) 0.3 Neut % (Auto) 72.7 Lymph % (Auto) 17.4 [place] % (Auto) 7.5 Eos % (Auto) 1.8 Baso % (Auto) 0.3 Neut # (Auto) 5.6 Lymph # (Auto) 1.4 [place] # (Auto) 0.6 Eos # (Auto) 0.1 Baso # (Auto) 0.0 Immature Gran # (Auto) 0.0 PT 24.8 H INR 2.49 Puncture Site Base Excess O2 Saturation ABG pH ABG pCO2 ABG pO2 ABG HCO3 ABG Total CO2 Mauricio Test Hemoglobin Oxyhemoglobin Carboxyhemoglobin Total Hemoglobin O2 Delivery Device FiO2 % Sodium 138.8 Potassium 4.40 Chloride 104.9 Carbon Dioxide 27.9 Anion Gap 10.40 BUN 24.5 H Creatinine 1.59 H Estimated GFR (MDRD) 43.00 BUN/Creatinine Ratio 15.40 Glucose 180.4 H Calcium 9.51 Total Bilirubin 1.00 AST 29.9 ALT 19.9 Alkaline Phosphatase 35.2 L Troponin I < 0.012 NT-Pro-B Natriuret Pep 525.000 H Total Protein 7.74 Albumin 3.84 Globulin 3.90 Albumin/Globulin Ratio 0.98 Influ A Molecular Assay Influ B Molecular Assay 05/30/21 05/30/21 11:25 12:50 WBC RBC Hgb Hct MCV MCH MCHC RDW Coeff of Placido Plt Count Immature Gran % (Auto) Neut % (Auto) Lymph % (Auto) [place] % (Auto) Eos % (Auto) Baso % (Auto) Neut # (Auto) Lymph # (Auto) [place] # (Auto) Eos # (Auto) Baso # (Auto) Immature Gran # (Auto) PT INR Puncture Site Rbrach Base Excess -1.8 O2 Saturation 95.0 ABG pH 7.45 ABG pCO2 32.0 L ABG pO2 72.0 L ABG HCO3 22.2 ABG Total CO2 23.2 Mauricio Test + Hemoglobin 1.4 Oxyhemoglobin 92.9 L Carboxyhemoglobin 1.9 H Total Hemoglobin 15.3 O2 Delivery Device Ra FiO2 % 21.0 Sodium Potassium Chloride Carbon Dioxide Anion Gap BUN Creatinine Estimated GFR (MDRD) BUN/Creatinine Ratio Glucose Calcium Total Bilirubin AST ALT Alkaline Phosphatase Troponin I NT-Pro-B Natriuret Pep Total Protein Albumin Globulin Albumin/Globulin Ratio Influ A Molecular Assay Negative by naat Influ B Molecular Assay Negative by naat Orders Category Date Time Status ADMIT PATIENT INPATIENT .TO [facility] (MONITORED BED) ADMISSION 05/30/21 13:39 Active ABG DRAW REQUEST Stat CARDIO 05/30/21 11:25 Completed EKG-(ED ONLY) Stat CARDIO 05/30/21 11:10 Completed EKG-(IP & OP ONLY) DAILY CARDIO 05/31/21 06:00 Ordered EKG-(IP & OP ONLY) DAILY CARDIO 06/01/21 06:00 Ordered EKG-(IP & OP ONLY) Routine CARDIO 06/01/21 06:00 Ordered NEBULIZER TREATMENT Routine CARDIO 05/30/21 13:46 Active OXYGEN Routine CARDIO 05/30/21 13:45 Active ACTIVITY .BR with BRP CARE 05/30/21 13:45 Completed IP: INSERT SALINE LOCK ONCE CARE 05/30/21 13:45 Active TELEMETRY MONITORING TELE CARE 05/30/21 13:39 Completed TELEMETRY MONITORING TELE CARE 05/30/21 13:45 Active VITAL SIGNS Q8HR CARE 05/30/21 13:45 Completed ABG COOX Stat LAB 05/30/21 11:25 Completed CBC W/ AUTO DIFF Stat LAB 05/30/21 11:18 Completed CBC W/ AUTO DIFF Stat LAB 05/31/21 06:00 Ordered COMPREHENSIVE METABOLIC PANEL Stat LAB 05/30/21 11:18 Completed COMPREHENSIVE METABOLIC PANEL Stat LAB 05/31/21 06:00 Ordered CREATINE KINASE Q8H LAB 05/30/21 19:01 Completed CREATINE KINASE Q8H LAB 05/30/21 21:45 Ordered FLU A & B MOLECULAR [FLU A/B MOLECULAR] Stat LAB 05/30/21 12:50 Completed NT-PROBNP Stat LAB 05/30/21 11:18 Completed PT WITH INR Stat LAB 05/30/21 11:18 Completed TROPONIN I Q8H LAB 05/30/21 19:01 Completed TROPONIN I Q8H LAB 05/30/21 21:45 Ordered TROPONIN I Stat LAB 05/30/21 11:18 Completed URINALYSIS C & S IF INDICATED Stat LAB 05/30/21 13:45 Uncollected 0.9 % Sodium Chloride [Saline Flush] MEDS 05/30/21 21:00 Active 1 syr IVF Q8HR Acetaminophen [Tylenol] MEDS 05/30/21 13:44 Active 650 mg PO Q4H PRN Atropine Sulfate Inj [Atropine Sulfate Pfs] MEDS 05/30/21 13:44 Active 0.5 mg IVP ONCE PRN Azithromycin Inj [Zithromax] 500 mg MEDS 05/30/21 13:44 Discontinued 0.9 % Sodium Chloride [Sodium Chloride] 250 ml IV ONCE Ceftriaxone/D5w 1 gm Premix [Rocephin 1 gm/50 ml D5w] MEDS 05/30/21 13:40 Discontinued 1 gm in 50 ml IV ONCE Diltiazem HCl [Cardizem Inj] MEDS 05/30/21 11:38 Discontinued 10 mg IVP ONCE ONE Enalapril Maleate [Vasotec] MEDS 05/31/21 09:00 Active 2.5 mg PO DAILY Fenofibrate [Triglide] MEDS 05/31/21 09:00 Active 160 mg PO DAILY Furosemide [Lasix Tab] MEDS 05/31/21 06:30 Active 40 mg PO QDAC Hydrocodone Bit/Acetaminophen [[place] 10-325] MEDS 05/30/21 13:48 Active 1 tab PO BID PRN Ipratropium/Albuterol Neb [Duoneb] MEDS 05/30/21 13:44 Active 3 ml NEB RTQ6H PRN Metformin HCl [Glucophage] MEDS 05/30/21 17:00 Active 1,000 mg PO BIDWM Nitroglycerin [Nitrostat] MEDS 05/30/21 13:44 Active 0.4 mg SL Q5MIN X 3 DOSES PRN Simvastatin [Zocor] MEDS 05/30/21 21:00 Active 20 mg PO BEDTIME Sitagliptin Phosphate [Januvia] MEDS 05/31/21 09:00 Active 100 mg PO DAILY Warfarin Sodium [Coumadin] MEDS 05/31/21 17:00 Active 6 mg PO QPM insulin degludec [Tresiba FlexTouch U-100] MEDS 05/31/21 09:00 Active 60 unit SUBCUT DAILY CHEST, 1V AP ONLY Stat RADS 05/30/21 11:10 Completed Medications Generic Name Dose Route Start Last Admin Trade Name Freq PRN Reason Stop Dose Admin Acetaminophen 650 mg 05/30/21 13:44 Acetaminophen 325 Mg Tablet PO Q4H PRN Headache Acetaminophen 650 mg 05/30/21 17:10 Acetaminophen 325 Mg Tablet PO Q4H PRN Headache Hydrocodone Bitart/Acetaminophen 1 tab 05/30/21 13:48 Hydrocodone Bit/Acetaminophen 10/325 Mg Tablet PO BID PRN Pain Albuterol/Ipratropium 3 ml 05/30/21 13:44 Ipratropium/Albuterol Vial.Neb NEB RTQ6H PRN Wheezing Atropine Sulfate 0.5 mg 05/30/21 13:44 Atropine Sulfate Inj 1 Mg/10 Ml Disp.Syrin IVP ONCE PRN Symptomatic Bradycardia Azithromycin 500 mg 05/30/21 16:00 05/30/21 17:27 Azithromycin 250 Mg Tablet PO 06/01/21 15:59 500 mg DAILY MARCELA Administration Dexamethasone Sodium Phosphate 6 mg 05/30/21 16:00 05/30/21 17:28 Dexamethasone Sod Phos 10 Mg/Ml Inj IM 6 mg DAILY MARCELA Administration Dextrose 50 ml 05/30/21 17:10 Dextrose 50 % In Water 50 Ml Disp.Syrin IVP ONCE PRN Unconscious Hypoglycemia Enalapril Maleate 2.5 mg 05/31/21 09:00 Enalapril Maleate 5 Mg Tablet PO DAILY MARCELA Famotidine 20 mg 05/31/21 06:30 Famotidine 20 Mg Tablet PO QDAC MARCELA Fenofibrate 160 mg 05/31/21 09:00 Fenofibrate 160 Mg Tablet PO DAILY MARCELA Furosemide 40 mg 05/31/21 06:30 Furosemide 40 Mg Tablet PO QDAC MARCELA CEFTRIAXONE/D5W 1 GM PREMIX 1 gm in 50 mls @ 75 mls/hr 05/31/21 09:00 Rocephin 1 Gm/50 Ml D5w IV 06/03/21 08:59 DAILY MARCELA Insulin Human Regular 0 unit 05/30/21 15:43 Insulin Regular, Human 100 Unit/Ml (3ml) Vial SUBCUT PRN PRN Hyperglycemia Protocol Metformin HCl 1,000 mg 05/30/21 17:00 05/30/21 17:37 Metformin Hcl 500 Mg Tablet PO Not Given BIDWM MARCELA Nitroglycerin 0.4 mg 05/30/21 13:44 Nitroglycerin 0.4 Mg Tab.Subl SL Q5MIN X 3 DOSES PRN Chest Pain Non-Formulary Medication 60 unit 05/31/21 09:00 Insulin Degludec [Tresiba Flextouch U-100] SUBCUT DAILY MARCELA Simvastatin 20 mg 05/30/21 21:00 Simvastatin 10 Mg Tablet PO BEDTIME MARCELA Sitagliptin Phosphate 100 mg 05/31/21 09:00 Sitagliptin Phosphate 50 Mg Tablet PO DAILY MARCELA Sodium Chloride 1 syr 05/30/21 21:00 0.9% Sodium Chloride 10 Ml Disp.Syrin IVF Q8HR MARCELA Warfarin Sodium 6 mg 05/31/21 17:00 Warfarin Sodium 3 Mg Tablet PO QPM MARCELA Discontinued Medications Generic Name Dose Route Start Last Admin Trade Name Cristóbal PRN Reason Stop Dose Admin Diltiazem HCl 10 mg 05/30/21 11:38 05/30/21 11:53 Diltiazem Hcl Inj 25 Mg/5 Ml Vial IVP 05/30/21 11:39 10 mg ONCE ONE Administration CEFTRIAXONE/D5W 1 GM PREMIX 1 gm in 50 mls @ 75 mls/hr 05/30/21 13:40 05/30/21 13:51 Rocephin 1 Gm/50 Ml D5w IV 05/30/21 14:19 75 mls/hr ONCE ONE Administration Azithromycin 500 mg/ Sodium 250 mls @ 125 mls/hr 05/30/21 13:44 05/30/21 15:41 Chloride IV 05/30/21 15:43 Not Given ONCE ONE Vital Signs: Temp Pulse Resp BP Pulse Ox 05/30/21 10:40 97.3 F L 80 22 150/52 H 91 L Discharge Plan Discharge Patient Disposition: ADMITTED INPATIENT Discharge Problem: Pneumonia Qualifiers: Pneumonia type: due to unspecified organism Laterality: bilateral Lung location: lower lobe of lung Qualified Code(s): J18.9 - Pneumonia, unspecified organism Atrial fibrillation Qualifiers: Atrial fibrillation type: longstanding persistent Qualified Code(s): I48.11 - Longstanding persistent atrial fibrillation ED Provider: SHABBIR RICHARDSON Condition: Stable Physician Progress Note: [Mild pneumonia, borderline hypoxia, mild A-fib RVR (rate normal after one dose of cardizem). Anticoagulated. Admit per Dr. Morales. ]
[2021-05-30 11:23] LABS: BASOPHILS % (AUTO) 0.3 % (0.0-3.0); EOSINOPHILS # (AUTO) 0.1 K/ul (0.0-0.7); EOSINOPHILS % (AUTO) 1.8 % (0.0-7.0); HEMATOCRIT 45.3 % (42.0-52.0); HEMOGLOBIN 14.5 g/dl (14.0-18.0); IMMATURE GRANULOCYTE % (AUTO) 0.3 % (0.0-5.0); LYMPHOCYTES # (AUTO) 1.4 K/uL (0.60-3.4); LYMPHOCYTES % (AUTO) 17.4 (10.0-50.0); MEAN CORPUSCULAR HEMOGLOBIN 28.4 pg (27.0-31.0); MEAN CORPUSCULAR VOLUME 88.6 fl (80.0-94.0); MONOCYTES # (AUTO) 0.6 K/uL (0.4-2.0); MONOCYTES % (AUTO) 7.5 (0-10); NEUTROPHILS # (AUTO) 5.6 K/ul (2.0-6.9); NEUTROPHILS % (AUTO) 72.7 % (42.2-75.2); PLATELET COUNT 268 10^3/uL (140-440); RDW COEFFICIENT OF VARIATION 14.1 % (11.6-14.8); RED BLOOD COUNT 5.11 10^6/ul (4.70-6.10); WHITE BLOOD COUNT 7.74 K/ul (4.2-10.2)
[2021-05-30] MEDS ORDERED: CARDIZEM INJ IVP ONE (11:38)
[2021-05-30 11:43] LABS: ALANINE AMINOTRANSFERASE 19.9 U/L (0-50); ALBUMIN 3.84 g/dL (3.5-5.0); ALKALINE PHOSPHATASE 35.2 U/L (56-119); ASPARTATE AMINO TRANSFERASE 29.9 U/L (17-59); BLOOD UREA NITROGEN 24.5 mg/dL (9-20); CALCIUM 9.51 mg/dL (8.4-10.2); CARBON DIOXIDE 27.9 mmol/L (22-30.0); CHLORIDE 104.9 mmol/L (98-107); CREATININE 1.59 mg/dL (0.60-1.10); GLUCOSE 180.4 mg/dL (74-106); SODIUM 138.8 mmol/L (134.5-145); TOTAL PROTEIN 7.74 g/dL (6.3-8.2)
[2021-05-30 11:45] LABS: ABG O2 HGB 92.9 % (95-100); ABG PH 7.45 (7.35-7.45); BEecf -1.8 (-2.0-3.0); COHb 1.9 (0.5-1.5); HCO3 22.2 (21-28); MetHb 1.4 (0-1.5); TCO2 23.2 (19-24); tHb 15.3 g/dl (11.7-17.4)
[2021-05-30 11:56] LABS: TROPONIN I < 0.012 ng/ml (0.0000-0.120)
--- NOTE | 2021-05-30 12:06 | DI ---
EXAM: Chest radiograph; single view 05/30/2021 HISTORY: Cough. Post COVID-19 COMPARISON: Chest radiograph 04/25/2020. FINDINGS/IMPRESSION: Trachea is midline. Cardiomediastinal silhouette is unchanged. Atherosclerotic disease in the aorta . Bibasilar opacities concerning for multifocal pneumonia. No pneumothorax or large pleural effusio ns. Osseous structures are intact.
[2021-05-30 13:10] LABS: MOLECULAR FLU A NEGATIVE BY NAAT (NEGATIVE); MOLECULAR FLU B NEGATIVE BY NAAT (NEGATIVE)
[2021-05-30 13:24] LABS: PROTHROMBIN TIME 24.8 SEC (9.3-11.0)
[2021-05-30] MEDS ORDERED: ROCEPHIN 1 GM/50 ML D5W 1 GM/50 ML BAG IV ONE (13:40)
[2021-05-30] MEDS ORDERED: ZITHROMAX 500 MG in SODIUM CHLORIDE 250 ML IV ONE (13:44)
[2021-05-30] MEDS ORDERED: DUONEB NEB PRN (13:44)
[2021-05-30] MEDS ORDERED: TYLENOL PO PRN ×2 (13:44→17:10)
[2021-05-30] MEDS ORDERED: ATROPINE SULFATE PFS IVP PRN (13:44)
[2021-05-30] MEDS ORDERED: NORCO 10-325 PO PRN (13:48)
[2021-05-30 15:14] VITALS: BMI 33.3
[2021-05-30] MEDS ORDERED: DEXTROSE 50%-WATER ABBOJECT IVP PRN (17:10)
[2021-05-30] MEDS: ZITHROMAX PO SCH (17:27)
[2021-05-30] MEDS: DECADRON IM SCH (17:28)
[2021-05-30] MEDS: GLUCOPHAGE PO SCH ×2 (17:28→17:37)
[2021-05-30 19:19] LABS: CREATINE KINASE 37.4 U/L (55-170)
[2021-05-30 19:32] LABS: TROPONIN I < 0.012 ng/ml (0.0000-0.120)
[2021-05-30] MEDS: ZOCOR PO SCH ×2 (20:44→20:50)
[2021-05-30] MEDS: HUMULIN R SUBCUT PRN (20:45)
[2021-05-31] MEDS: PEPCID PO SCH (05:36)
[2021-05-31] MEDS: LASIX TAB PO SCH (05:36)
[2021-05-31 06:14] LABS: BASOPHILS % (AUTO) 0.2 % (0.0-3.0); EOSINOPHILS % (AUTO) 0.2 % (0.0-7.0); HEMATOCRIT 45.1 % (42.0-52.0); HEMOGLOBIN 14.4 g/dl (14.0-18.0); IMMATURE GRANULOCYTE % (AUTO) 0.4 % (0.0-5.0); LYMPHOCYTES # (AUTO) 1.2 K/uL (0.60-3.4); LYMPHOCYTES % (AUTO) 24.3 (10.0-50.0); MEAN CORPUSCULAR HEMOGLOBIN 28.6 pg (27.0-31.0); MEAN CORPUSCULAR HGB CONC 31.9 (31.8-35.4); MEAN CORPUSCULAR VOLUME 89.7 fl (80.0-94.0); MONOCYTES # (AUTO) 0.2 K/uL (0.4-2.0); MONOCYTES % (AUTO) 4.9 (0-10); NEUTROPHILS # (AUTO) 3.5 K/ul (2.0-6.9); PLATELET COUNT 264 10^3/uL (140-440); RED BLOOD COUNT 5.03 10^6/ul (4.70-6.10); WHITE BLOOD COUNT 4.94 K/ul (4.2-10.2)
[2021-05-31 06:31] LABS: ALBUMIN 3.81 g/dL (3.5-5.0); ALKALINE PHOSPHATASE 28.5 U/L (56-119); ASPARTATE AMINO TRANSFERASE 23.6 U/L (17-59); BILIRUBIN,TOTAL 0.47 mg/dL (0.2-1.3); BLOOD UREA NITROGEN 27.6 mg/dL (9-20); CALCIUM 9.52 mg/dL (8.4-10.2); CARBON DIOXIDE 28.5 mmol/L (22-30.0); CHLORIDE 102.9 mmol/L (98-107); CREATININE 1.28 mg/dL (0.60-1.10); GLUCOSE 286.7 mg/dL (74-106); POTASSIUM 4.82 mmol/L (3.5-5.1); SODIUM 136.7 mmol/L (134.5-145); TOTAL PROTEIN 7.57 g/dL (6.3-8.2)
[2021-05-31] MEDS: HUMULIN R SUBCUT PRN ×4 (06:35→20:47)
[2021-05-31 06:36] LABS: PROTHROMBIN TIME 29.8 SEC (9.3-11.0)
[2021-05-31 06:48] LABS: ERYTHROCYTE SEDIMENTATION RATE 74 mm/hr (0-15)
[2021-05-31 08:49] LABS: CREATINE KINASE 95.2 U/L (55-170)
[2021-05-31] MEDS ORDERED: NON-FORMULARY MEDICATION (Insulin Degludec [Tresiba Flextouch U-100] 100 UNIT/ML insulin p SUBCUT SCH (09:00)
[2021-05-31 09:04] LABS: TROPONIN I < 0.012 ng/ml (0.0000-0.120)
--- NOTE | 2021-05-31 09:05 | PCM.PROG ---
Attending Provider: ATTENDING PROVIDER: Dr. DAWSON RIVERS DATE OF SERVICE: 05/31/21 SUBJECTIVE: This 70 year old /WHITE M was hospitalized 05/30/21 with COVID pneumonia and after effects like respiratory failure. The patient's condition has improved feeling a lot better and talking better. Oxygen saturation is 90% without oxygen. No symptoms of CHF. Appetite is fair and afebrile. REVIEW OF SYSTEMS: CONSTITUTIONAL: No night sweats. No fatigue, malaise, lethargy. No fever or chills. HEENT: Eyes: No visual changes. No eye pain. No eye discharge. ENT: No runny nose. No epistaxis. No sinus pain. No odynophagia. No congestion. RESPIRATORY: No cough, no congestion. No hemoptysis. No shortness of breath. CARDIOVASCULAR: No angina symptoms. No CHF symptoms. No atypical chest pain for CAD. No palpitations. No orthopnea.. GASTROINTESTINAL: No abdominal pain. No nausea or vomiting. No diarrhea or constipation. No hematemesis. No hematochezia. GENITOURINARY: No urgency. No frequency. No dysuria. No hematuria. No obstructive symptoms. No discharge. No pain. No significant abnormal bleeding. MUSCULOSKELETAL: No musculoskeletal pain; no joint swelling. NEUROLOGICAL: Awake, alert, oriented to time, place and person. No headache. No neck pain. No syncope. No seizures. No dizziness. PSYCHIATRIC: Not anxious. No depression. No suicidal thoughts. No homicidal thoughts. SKIN: No rash. No lesions. No wounds. ENDOCRINE: No unexplained weight loss. No weight gain. HEMATOLOGIC/LYMPHATIC: No anemia. No purpura. No petechiae. No prolonged or excessive bleeding. No palpable lymph nodes. PHYSICAL EXAMINATION: GENERAL: The patient is awake, alert and oriented, lying in bed in no distress. VITAL SIGNS: Temperature 97.9 F, Pulse 73, Respiratory Rate 20, BP 125/62, Pulse Ox 95% HEENT: Head normocephalic, atraumatic. Eyes: Extraocular muscles are intact. Pupils are equal, round and reactive to light and accommodation. Ears: No lesions. Nose appeared normal. Throat: No exudate or erythema. NECK: Supple. No JVD, no carotid bruit. No lymphadenopathy or thyromegaly. LUNGS: Decreased breath sounds. Clear to auscultation. Percussion note normal. Chest symmetrical. HEART: S1, S2, no S3. No murmurs. No cyanosis or clubbing. No ascites. Pulses: Dorsalis pedis and posterior tibial pulses +1 to +2 both sides. ABDOMEN: Soft. Non-tender. Bowel sounds active. No CVA tenderness. No mass felt. EXTREMITIES: No edema. Full range of motion of all extremities, equal. NEUROLOGIC: No focal deficit. Cranial nerves II through XII are grossly intact. No headache, no double vision or headache. SKIN: Warm and dry. Intact. Turgor-normal. LYMPHATIC: No palpable lymph nodes/no lymphedema. MUSCULOSKELETAL: Normal joints with no swelling. Muscle tone is normal. LAB REVIEW: 05/31/21 06:05 05/31/21 06:05 05/31/21 06:05: Ferritin 272.00 05/31/21 06:05: Sodium 136.7, Potassium 4.82, Chloride 102.9, Carbon Dioxide 28.5, Anion Gap 10.12, BUN 27.6 H, Creatinine 1.28 H, Estimated GFR (MDRD) 56.00, BUN/Creatinine Ratio 21.56, Glucose 286.7 H D, Calcium 9.52, Total Bilirubin 0.47, AST 23.6, ALT 20.0, Alkaline Phosphatase 28.5 L, Total Protein 7.57, Albumin 3.81, Globulin 3.76, Albumin/Globulin Ratio 1.01 05/31/21 06:05: WBC 4.94, RBC 5.03, Hgb 14.4, Hct 45.1, MCV 89.7, MCH 28.6, MCHC 31.9, RDW Coeff of Placido 14.0, Plt Count 264, Immature Gran % (Auto) 0.4, Neut % (Auto) 70.0, Lymph % (Auto) 24.3, Alexander % (Auto) 4.9, Eos % (Auto) 0.2, Baso % (Auto) 0.2, Neut # (Auto) 3.5, Lymph # (Auto) 1.2, Alexander # (Auto) 0.2 L, Eos # (Auto) 0.0, Baso # (Auto) 0.0, Immature Gran # (Auto) 0.0 05/31/21 06:05: D-Dimer 1459.41 H 05/31/21 06:05: ESR 74 H 05/31/21 06:05: PT 29.8 H D, INR 3.03 05/30/21 19:01: Total Creatine Kinase 37.4 L, Troponin I < 0.012 05/30/21 12:50: Influ A Molecular Assay Negative by naat, Influ B Molecular Assay Negative by naat 05/30/21 11:25: Puncture Site Rbrach, Base Excess -1.8, O2 Saturation 95.0, ABG pH 7.45, ABG pCO2 32.0 L, ABG pO2 72.0 L, ABG HCO3 22.2, ABG Total CO2 23.2, Mauricio Test +, Hemoglobin 1.4, Oxyhemoglobin 92.9 L, Carboxyhemoglobin 1.9 H, Total Hemoglobin 15.3, O2 Delivery Device Ra, FiO2 % 21.0 05/30/21 11:18: PT 24.8 H, INR 2.49 05/30/21 11:18: Sodium 138.8, Potassium 4.40, Chloride 104.9, Carbon Dioxide 27.9, Anion Gap 10.40, BUN 24.5 H, Creatinine 1.59 H, Estimated GFR (MDRD) 43.00, BUN/Creatinine Ratio 15.40, Glucose 180.4 H, Calcium 9.51, Total Bilirubin 1.00, AST 29.9, ALT 19.9, Alkaline Phosphatase 35.2 L, Troponin I < 0.012, NT-Pro-B Natriuret Pep 525.000 H, Total Protein 7.74, Albumin 3.84, Globulin 3.90, Albumin/Globulin Ratio 0.98 05/30/21 11:18: WBC 7.74, RBC 5.11, Hgb 14.5, Hct 45.3, MCV 88.6, MCH 28.4, MCHC 32.0, RDW Coeff of Placido 14.1, Plt Count 268, Immature Gran % (Auto) 0.3, Neut % (Auto) 72.7, Lymph % (Auto) 17.4, Alexander % (Auto) 7.5, Eos % (Auto) 1.8, Baso % (Auto) 0.3, Neut # (Auto) 5.6, Lymph # (Auto) 1.4, Alexander # (Auto) 0.6, Eos # (Auto) 0.1, Baso # (Auto) 0.0, Immature Gran # (Auto) 0.0 ASSESSMENT: Please see below. 1. COVID 19 pneumonia 2. Respiratory failure 3. Chronic lung disease 4. Diabetes Mellitus 5. History of CVA 6. Atrial fibrillation 7. Dyslipidemia 8. Hypertension PLAN: 1. Educated that patient about COVID 19 and the patient is willing to take vaccine once out of the hospital 2. Continue steroids, antibiotics and oxygen Plan and coordination of the patient's care discussed in the presence of Manager Student Services and nurse. CONDITION: Stable SCRIBED BY: Rukhsana BOYCE scribed while in presence of service performed by Dr. DAWSON RIVERS on 05/31/21 ([id number])
[2021-05-31] MEDS: TRIGLIDE PO SCH (09:19)
[2021-05-31] MEDS: GLUCOPHAGE PO SCH ×2 (09:19→16:57)
[2021-05-31] MEDS: JANUVIA PO SCH (09:19)
[2021-05-31] MEDS: VASOTEC PO SCH (09:20)
[2021-05-31] MEDS: ZITHROMAX PO SCH (09:20)
[2021-05-31] MEDS: ROCEPHIN 1 GM/50 ML D5W 1 GM/50 ML BAG IV SCH (09:21)
[2021-05-31] MEDS: DECADRON IM SCH (09:22)
--- NOTE | 2021-05-31 09:38 | HP ---
DATE OF SERVICE: 05/30/2021 REASON FOR HOSPITALIZATION/HISTORY OF PRESENT ILLNESS: 70 year old white male who was positive for COVID on 05/21. He experienced at that time just cough, congestion and body aches. He is not vaccinated. He was called out a Z-pack 250 along with Prednisone. He declined an antibody infusion. He is now 9 days since testing positive, presents to the emergency room with worsening shortness of breath and weakness. PAST MEDICAL HISTORY: Dyslipidemia Claudication Afib on Coumadin Chronic kidney disease stage III CHF ED Diabetes Mellitus type ii last A1c was 7.7 on 12/20 History of marijuana use Recurrent DVT CVA in 2002 Diabetic neuropathy Hypertension LVH History of positive stress test but has reduced cardiac cath Noncompliant with lifestyle, diet, medications, followup and recommendation Severe degenerative disc disease of the spine Instructed to have stress test again on 05/21 which he did go to. Arterial study 04/21 he actually went on 11/20 was normal. Last colonoscopy 02/17 PAST SURGICAL HISTORY: Ventral hernia repair 2007 Last cardiac cath was 2008 REVIEW OF SYSTEMS: CONSTITUTIONAL: No night sweats. Fatigue. No fever or chills. HEENT: Eyes: No visual changes. No eye pain. No eye discharge. ENT: No runny nose. No epistaxis. No sinus pain. No sore throat. No odynophagia. No ear pain. No congestion. RESPIRATORY: Cough, no congestion. No hemoptysis. Shortness of breath. CARDIOVASCULAR: No angina symptoms. No CHF symptoms. No atypical chest pain for CAD. No palpitations. No PND. No orthopnea. GASTROINTESTINAL: No abdominal pain. No nausea or vomiting. No diarrhea or constipation. No hematemesis. No hematochezia. GENITOURINARY: No urgency. No frequency. No dysuria. No hematuria. No obstructive symptoms. No discharge. No pain. No significant abnormal bleeding. MUSCULOSKELETAL: No musculoskeletal pain. No joint swelling. No arthritis. NEUROLOGICAL: No headache. No neck pain. No syncope. No seizures. No dizziness. PSYCHIATRIC: Not anxious. No depression. No suicidal thoughts. No homicidal thoughts. SKIN: No rash. No lesions. No wounds. ENDOCRINE: No unexplained weight loss. No weight gain. HEMATOLOGIC/LYMPHATIC: No anemia. No purpura. No petechiae. No prolonged or excessive bleeding. No palpable lymph nodes. PERSONAL/FAMILY/SOCIAL HISTORY: He lives with his . Non-smoker. Does admit to occasional marijuana use. No alcohol abuse. MEDICATIONS: Warfarin 6mg PO daily Metformin 1000mg PO BID Hydrocodone-Acetaminophen 1 tablet PO BID PRN Lasix 40mg PO daily Fenofibrate 160mg PO daily Enalapril 2.5mg PO daily Tresiba 60 units SQ daily Januvia 100mg PO daily Zantac 150mg PO daily Simvastatin 20mg PO bedtime ALLERGIES: Cortisone Penicillin PHYSICAL EXAMINATION: GENERAL: The patient is alert and oriented. HEENT: Head normocephalic, atraumatic. Eyes: Extraocular muscles are intact. Pupils are equal, round and reactive to light and accommodation. Ears: No lesions. Nose appeared normal. Throat: No exudate or erythema. NECK: Supple. No JVD, no carotid bruit. No lymphadenopathy or thyromegaly. LUNGS: Diminished breath sounds. Clear to auscultation. Percussion note normal. Chest symmetrical. HEART: S1, S2, no S3. irregular heart rate. No murmur. No cyanosis or clubbing. No ascites. Pulses: Dorsalis pedis and posterior tibial pulses +1 to +2 bilaterally. ABDOMEN: Soft. Nontender. Bowel sounds active. No CVA tenderness. No mass felt. EXTREMITIES: No edema. Full range of motion of all extremities, equal. NEUROLOGIC: No focal deficit. Cranial nerves II through XII are grossly intact. No headache, no double vision or headache. SKIN: Not dry. Intact. Turgor - normal. LYMPHATIC: No palpable lymph nodes/no lymphedema. MUSCULOSKELETAL: Normal joints with no swelling. Muscle tone is normal. LABS: ABG on 2 liters pH 7.45, pCo2 32, pO2 72, O2 saturation 95%. Sodium 138, potassium 4.4, BUN 24, creatinine 1.59, glucose 180, AST 29, ALT 19, PROBNP 525. WBC 7.7, hgb 14.5, hct 45.3, plt count 268. Chest x-ray shows bibasilar opacities concerning for multifocal pneumonia. ASSESSMENT: 1. Positive COVID 19 2. Bilateral COVID pneumonia 3. Acute respiratory failure 4. Dehydration 5. Chronic kidney disease stage II 6. Diabetes Mellitus type II 7. Hypertension PLAN: 1. We will admit 2. Routine telemetry orders 3. Routine COVID order set 4. CBC and CMP daily 5. Start Rocephin 1 gram IV daily 6. Doxycycline 100mg IV Q 12 hours 7. Continue with Coumadin 8. Daily INR 9. Regular diet 10.Oxygen at 2-3 liters 11.Keep saturations in mid 90s 12.Decadron 6mg IV daily 13.Pepcid 40mg BID 14. Zinc 220mg PO daily 15.Symbicort 160mg two puffs BID 16.Albuterol two puffs TID scheduled 17.Daily D-dimer 18.Ferritin 19.LVH 20.CRP 21.SED rate 22.Will ask the patient regarding Remdesivir TIME SPENT: More than 70 minutes. MTDD
[2021-05-31] MEDS: LANTUS SUBCUT SCH (15:12)
[2021-05-31 15:22] LABS: BILIRUBIN,URINE Negative (NEGATIVE); CLARITY,URINE Clear (CLEAR); COLOR,URINE Yellow (YELLOW); GLUCOSE, URINE (UA) 2+ (NEGATIVE); KETONES,URINE Negative (NEGATIVE); LEUKOCYTE ESTERASE ,URINE Negative (NEGATIVE); NITRITE,URINE Negative (NEGATIVE); PROTEIN,URINE Negative (NEGATIVE); URINE, BLOOD 2+ (NEGATIVE); UROBILINOGEN,URINE 0.2 (0.2)
[2021-05-31 15:26] LABS: SQUAMOUS EPITHELIAL CELL,UR NOT PRESENT (0-5)
[2021-05-31] MEDS ORDERED: COUMADIN PO SCH (17:00)
[2021-05-31] MEDS: ZOCOR PO SCH (20:47)
[2021-06-01] MEDS: PEPCID PO SCH (05:33)
[2021-06-01] MEDS: LASIX TAB PO SCH (05:33)
[2021-06-01] MEDS: HUMULIN R SUBCUT PRN ×3 (05:53→21:31)
[2021-06-01 06:11] LABS: C-REACTIVE PROTEIN 50 mg/L (0-10)
[2021-06-01 06:18] LABS: BASOPHILS % (AUTO) 0.1 % (0.0-3.0); EOSINOPHILS # (AUTO) 0.1 K/ul (0.0-0.7); EOSINOPHILS % (AUTO) 0.8 % (0.0-7.0); HEMATOCRIT 40.8 % (42.0-52.0); HEMOGLOBIN 13.2 g/dl (14.0-18.0); IMMATURE GRANULOCYTE # (AUTO) 0.1 (0.0-1.0); IMMATURE GRANULOCYTE % (AUTO) 0.6 % (0.0-5.0); LYMPHOCYTES % (AUTO) 16.7 (10.0-50.0); MEAN CORPUSCULAR HEMOGLOBIN 28.9 pg (27.0-31.0); MEAN CORPUSCULAR HGB CONC 32.4 (31.8-35.4); MEAN CORPUSCULAR VOLUME 89.5 fl (80.0-94.0); MONOCYTES # (AUTO) 0.7 K/uL (0.4-2.0); NEUTROPHILS # (AUTO) 9.1 K/ul (2.0-6.9); NEUTROPHILS % (AUTO) 75.8 % (42.2-75.2); PLATELET COUNT 283 10^3/uL (140-440); RDW COEFFICIENT OF VARIATION 13.8 % (11.6-14.8); RED BLOOD COUNT 4.56 10^6/ul (4.70-6.10); WHITE BLOOD COUNT 11.92 K/ul (4.2-10.2)
[2021-06-01 06:36] LABS: ALANINE AMINOTRANSFERASE 16.9 U/L (0-50); ALBUMIN 3.55 g/dL (3.5-5.0); ALKALINE PHOSPHATASE 27.5 U/L (56-119); ASPARTATE AMINO TRANSFERASE 23.2 U/L (17-59); BILIRUBIN,TOTAL 0.29 mg/dL (0.2-1.3); BLOOD UREA NITROGEN 29.8 mg/dL (9-20); CALCIUM 9.17 mg/dL (8.4-10.2); CARBON DIOXIDE 30.6 mmol/L (22-30.0); CHLORIDE 103.6 mmol/L (98-107); CREATININE 1.38 mg/dL (0.60-1.10); GLUCOSE 185.3 mg/dL (74-106); POTASSIUM 4.59 mmol/L (3.5-5.1); SODIUM 137.9 mmol/L (134.5-145); TOTAL PROTEIN 7.13 g/dL (6.3-8.2)
[2021-06-01 06:47] LABS: PROTHROMBIN TIME 36.4 SEC (9.3-11.0)
[2021-06-01 07:43] LABS: ERYTHROCYTE SEDIMENTATION RATE 77 mm/hr (0-15)
[2021-06-01] MEDS: TRIGLIDE PO SCH (09:17)
[2021-06-01] MEDS: JANUVIA PO SCH (09:17)
[2021-06-01] MEDS: VASOTEC PO SCH (09:17)
[2021-06-01] MEDS: GLUCOPHAGE PO SCH ×2 (09:17→17:42)
[2021-06-01] MEDS: ZITHROMAX PO SCH (09:18)
[2021-06-01] MEDS: DECADRON IM SCH (09:18)
[2021-06-01] MEDS: LANTUS SUBCUT SCH (09:19)
[2021-06-01] MEDS: ROCEPHIN 1 GM/50 ML D5W 1 GM/50 ML BAG IV SCH (09:21)
[2021-06-01] MEDS ORDERED: LOMOTIL PO ONE (13:07)
[2021-06-01] MEDS ORDERED: LOMOTIL PO PRN (13:10)
[2021-06-01] MEDS: ZOCOR PO SCH (21:31)
[2021-06-02] MEDS: PEPCID PO SCH (05:41)
[2021-06-02] MEDS: LASIX TAB PO SCH (05:41)
[2021-06-02 06:09] LABS: BASOPHILS % (AUTO) 0.1 % (0.0-3.0); EOSINOPHILS # (AUTO) 0.1 K/ul (0.0-0.7); EOSINOPHILS % (AUTO) 0.5 % (0.0-7.0); HEMOGLOBIN 13.6 g/dl (14.0-18.0); IMMATURE GRANULOCYTE # (AUTO) 0.1 (0.0-1.0); IMMATURE GRANULOCYTE % (AUTO) 0.8 % (0.0-5.0); LYMPHOCYTES # (AUTO) 2.2 K/uL (0.60-3.4); LYMPHOCYTES % (AUTO) 18.6 (10.0-50.0); MEAN CORPUSCULAR HEMOGLOBIN 28.9 pg (27.0-31.0); MEAN CORPUSCULAR HGB CONC 32.4 (31.8-35.4); MEAN CORPUSCULAR VOLUME 89.2 fl (80.0-94.0); MONOCYTES # (AUTO) 0.8 K/uL (0.4-2.0); MONOCYTES % (AUTO) 6.3 (0-10); NEUTROPHILS # (AUTO) 8.8 K/ul (2.0-6.9); NEUTROPHILS % (AUTO) 73.7 % (42.2-75.2); PLATELET COUNT 305 10^3/uL (140-440); RDW COEFFICIENT OF VARIATION 13.7 % (11.6-14.8); RED BLOOD COUNT 4.71 10^6/ul (4.70-6.10); WHITE BLOOD COUNT 11.95 K/ul (4.2-10.2)
[2021-06-02 06:29] LABS: ALANINE AMINOTRANSFERASE 23.1 U/L (0-50); ALBUMIN 3.69 g/dL (3.5-5.0); ALKALINE PHOSPHATASE 53.5 U/L (56-119); BILIRUBIN,TOTAL 0.34 mg/dL (0.2-1.3); BLOOD UREA NITROGEN 29.4 mg/dL (9-20); CALCIUM 9.19 mg/dL (8.4-10.2); CARBON DIOXIDE 31.7 mmol/L (22-30.0); CHLORIDE 102.6 mmol/L (98-107); CREATININE 1.16 mg/dL (0.60-1.10); GLUCOSE 154.5 mg/dL (74-106); POTASSIUM 4.35 mmol/L (3.5-5.1); SODIUM 137.8 mmol/L (134.5-145); TOTAL PROTEIN 7.06 g/dL (6.3-8.2)
[2021-06-02 06:31] LABS: PROTHROMBIN TIME 36.3 SEC (9.3-11.0)
[2021-06-02 07:48] LABS: ABG O2 HGB 92.2 % (95-100); ABG PH 7.44 (7.35-7.45); BEecf 4.3 (-2.0-3.0); COHb 2.2 (0.5-1.5); HCO3 28.5 (21-28); MetHb 0.6 (0-1.5); TCO2 29.8 (19-24); sO2 92.9 % (94-98); tHb 13.2 g/dl (11.7-17.4)
[2021-06-02] MEDS: JANUVIA PO SCH (08:36)
[2021-06-02] MEDS: VASOTEC PO SCH (08:36)
[2021-06-02] MEDS: DECADRON IM SCH (08:36)
[2021-06-02] MEDS: TRIGLIDE PO SCH (08:37)
[2021-06-02] MEDS: GLUCOPHAGE PO SCH ×2 (08:37→17:37)
[2021-06-02] MEDS: ROCEPHIN 1 GM/50 ML D5W 1 GM/50 ML BAG IV SCH (08:37)
[2021-06-02] MEDS: LANTUS SUBCUT SCH (08:37)
[2021-06-02] MEDS: HUMULIN R SUBCUT PRN ×3 (11:17→21:24)
[2021-06-02] MEDS: NITROSTAT SL PRN ×2 (16:43→16:55)
[2021-06-02] MEDS ORDERED: COUMADIN PO SCH (17:00)
[2021-06-02 17:04] LABS: CREATINE KINASE 37.2 U/L (55-170)
[2021-06-02 17:17] LABS: TROPONIN I < 0.012 ng/ml (0.0000-0.120)
[2021-06-02] MEDS ORDERED: PROTONIX PO ONE (17:20)
[2021-06-02] MEDS: ZOCOR PO SCH (21:23)
[2021-06-03 04:45] LABS: BASOPHILS % (AUTO) 0.1 % (0.0-3.0); EOSINOPHILS % (AUTO) 0.2 % (0.0-7.0); HEMATOCRIT 39.3 % (42.0-52.0); HEMOGLOBIN 12.8 g/dl (14.0-18.0); IMMATURE GRANULOCYTE # (AUTO) 0.1 (0.0-1.0); IMMATURE GRANULOCYTE % (AUTO) 0.9 % (0.0-5.0); LYMPHOCYTES # (AUTO) 2.6 K/uL (0.60-3.4); LYMPHOCYTES % (AUTO) 23.3 (10.0-50.0); MEAN CORPUSCULAR HEMOGLOBIN 28.5 pg (27.0-31.0); MEAN CORPUSCULAR HGB CONC 32.6 (31.8-35.4); MEAN CORPUSCULAR VOLUME 87.5 fl (80.0-94.0); MONOCYTES # (AUTO) 0.8 K/uL (0.4-2.0); MONOCYTES % (AUTO) 6.8 (0-10); NEUTROPHILS # (AUTO) 7.8 K/ul (2.0-6.9); NEUTROPHILS % (AUTO) 68.7 % (42.2-75.2); PLATELET COUNT 305 10^3/uL (140-440); RDW COEFFICIENT OF VARIATION 13.6 % (11.6-14.8); RED BLOOD COUNT 4.49 10^6/ul (4.70-6.10); WHITE BLOOD COUNT 11.35 K/ul (4.2-10.2)
[2021-06-03] MEDS: PEPCID PO SCH ×2 (05:23→07:09)
[2021-06-03] MEDS: LASIX TAB PO SCH ×2 (05:23→07:09)
[2021-06-03] MEDS: PROTONIX PO SCH ×2 (05:24→07:10)
[2021-06-03 05:45] LABS: ALANINE AMINOTRANSFERASE 20.2 U/L (0-50); ALBUMIN 3.48 g/dL (3.5-5.0); ASPARTATE AMINO TRANSFERASE 41.3 U/L (17-59); BILIRUBIN,TOTAL 0.42 mg/dL (0.2-1.3); BLOOD UREA NITROGEN 30.4 mg/dL (9-20); CARBON DIOXIDE 30.5 mmol/L (22-30.0); CHLORIDE 103.5 mmol/L (98-107); CREATININE 1.21 mg/dL (0.60-1.10); GLUCOSE 106.8 mg/dL (74-106); POTASSIUM 4.29 mmol/L (3.5-5.1); SODIUM 138.4 mmol/L (134.5-145); TOTAL PROTEIN 6.87 g/dL (6.3-8.2)
[2021-06-03 05:57] LABS: PROTHROMBIN TIME 25.5 SEC (9.3-11.0)
[2021-06-03] MEDS: GLUCOPHAGE PO SCH ×2 (09:15→16:41)
[2021-06-03] MEDS: JANUVIA PO SCH (09:15)
[2021-06-03] MEDS: TRIGLIDE PO SCH (09:16)
[2021-06-03] MEDS: VASOTEC PO SCH (09:16)
[2021-06-03] MEDS: DECADRON IM SCH (09:19)
[2021-06-03] MEDS: LANTUS SUBCUT SCH (09:21)
[2021-06-03] MEDS: HUMULIN R SUBCUT PRN ×2 (17:59→22:14)
[2021-06-03] MEDS: ZOCOR PO SCH (20:13)
[2021-06-04 05:24] LABS: BASOPHILS % (AUTO) 0.1 % (0.0-3.0); EOSINOPHILS # (AUTO) 0.1 K/ul (0.0-0.7); EOSINOPHILS % (AUTO) 0.4 % (0.0-7.0); HEMATOCRIT 39.9 % (42.0-52.0); HEMOGLOBIN 12.9 g/dl (14.0-18.0); IMMATURE GRANULOCYTE # (AUTO) 0.2 (0.0-1.0); IMMATURE GRANULOCYTE % (AUTO) 1.4 % (0.0-5.0); LYMPHOCYTES # (AUTO) 2.8 K/uL (0.60-3.4); LYMPHOCYTES % (AUTO) 22.9 (10.0-50.0); MEAN CORPUSCULAR HEMOGLOBIN 28.5 pg (27.0-31.0); MEAN CORPUSCULAR HGB CONC 32.3 (31.8-35.4); MEAN CORPUSCULAR VOLUME 88.3 fl (80.0-94.0); MONOCYTES # (AUTO) 0.8 K/uL (0.4-2.0); MONOCYTES % (AUTO) 6.6 (0-10); NEUTROPHILS # (AUTO) 8.3 K/ul (2.0-6.9); NEUTROPHILS % (AUTO) 68.6 % (42.2-75.2); PLATELET COUNT 296 10^3/uL (140-440); RDW COEFFICIENT OF VARIATION 13.9 % (11.6-14.8); RED BLOOD COUNT 4.52 10^6/ul (4.70-6.10); WHITE BLOOD COUNT 12.07 K/ul (4.2-10.2)
[2021-06-04 05:38] LABS: ALANINE AMINOTRANSFERASE 18.6 U/L (0-50); ALBUMIN 3.48 g/dL (3.5-5.0); ALKALINE PHOSPHATASE 29.8 U/L (56-119); ASPARTATE AMINO TRANSFERASE 18.4 U/L (17-59); BILIRUBIN,TOTAL 0.41 mg/dL (0.2-1.3); BLOOD UREA NITROGEN 36.6 mg/dL (9-20); CALCIUM 9.09 mg/dL (8.4-10.2); CARBON DIOXIDE 29.4 mmol/L (22-30.0); CHLORIDE 101.7 mmol/L (98-107); CREATININE 1.29 mg/dL (0.60-1.10); GLUCOSE 133.7 mg/dL (74-106); POTASSIUM 4.24 mmol/L (3.5-5.1); SODIUM 135.8 mmol/L (134.5-145); TOTAL PROTEIN 6.54 g/dL (6.3-8.2)
[2021-06-04] MEDS: PROTONIX PO SCH (05:40)
[2021-06-04] MEDS: LASIX TAB PO SCH (05:40)
[2021-06-04] MEDS: PEPCID PO SCH (05:41)
[2021-06-04 05:57] LABS: PROTHROMBIN TIME 16.7 SEC (9.3-11.0)
[2021-06-04 06:07] LABS: ERYTHROCYTE SEDIMENTATION RATE 32 mm/hr (0-15)
[2021-06-04 06:24] VITALS: BP 125/50; TEMP 97.6
[2021-06-04] MEDS ORDERED: PREDNISONE PO ONE (09:13)
[2021-06-04] MEDS ORDERED: LEVAQUIN PO ONE (09:30)
[2021-06-04] MEDS: JANUVIA PO SCH (09:54)
[2021-06-04] MEDS: TRIGLIDE PO SCH (09:55)
[2021-06-04] MEDS: GLUCOPHAGE PO SCH (09:55)
[2021-06-04] MEDS: VASOTEC PO SCH (09:55)
[2021-06-04] MEDS: LANTUS SUBCUT SCH (09:55)
[2021-06-04] MEDS: DECADRON IM SCH (10:05)
[2021-06-04] MEDS: HUMULIN R SUBCUT PRN (11:50)
--- NOTE | 2021-06-04 12:29 | CM.DICTOOL ---
ADMISSION: 05/30/21 13:52 DISCHARGE: JUNE 02, 2021 DATE OF SERVICE: 06/04/21 FINAL DIAGNOSIS COVID 19 PNEUMONIA ACUTE RESPIRATORY FAILURE CHRONIC LUNG DISEASE HX: DIABETES, TYPE 2 A1C 7.7 ON 12/20 CKD, STAGE 3 CAD COPD CHF DYSLIPIDEMIA CLAUDICATION GERD HYPERTENSION A- FIB - COUMADIN THERAPY CVA IN 2002 DIABETIC NEUROPATHY RECCURRENT DVT LVH ANGIOEDEMA SEVERE DJD SPINE OA, KNEES VERTIGO SJOGREN'S SYNDROME SYNCOPE R/T MARIJUANA USE NON-COMPLIANCE DIET, LIFESTYLE, MEDICATIONS AND FOLLOW UP AND RECOMMENDATION CATARACTS ED STRESS TEST SESTAMIBI POSITIVE ISCHEMIA - REFUSED CATH INSTRUCTED TO HAVE A STRESS TEST AGAIN ON 05/21 WHICH HE DID NOT GO TO ARTERIAL STUDY 04/21 HE ACTUALLY WENT TO ON 11/20 WAS NORMAL PROCEDURES: VENTRAL HERNIA REPAIR CHOLECYSTECTOMY COLONOSCOPY 02/17 LAST HEART CATH WAS 2008 LAST VITALS Temp Pulse Resp BP Pulse Ox 97.6 F 61 16 125/50 L 97 06/04/21 06:00 06/04/21 06:00 06/04/21 06:00 06/04/21 06:00 06/04/21 09:48 TAKE THESE MEDICATIONS AT HOME Hydrocodone Bitart/Acetaminophen (Hydrocodone Bit/Acetaminophen 10/325 Mg Tablet) 1 tab PO BID PRN PRN Reason: Pain Last Admin: 05/31/21 17:26 Dose: 1 tab Enalapril Maleate (Enalapril Maleate 5 Mg Tablet) 2.5 mg PO DAILY [facility] Last Admin: 06/04/21 09:55 Dose: 2.5 mg Fenofibrate (Fenofibrate 160 Mg Tablet) 160 mg PO DAILY [facility] Last Admin: 06/04/21 09:55 Dose: 160 mg Furosemide (Furosemide 40 Mg Tablet) 40 mg PO QDAC [facility] Last Admin: 06/04/21 05:40 Dose: 40 mg Metformin HCl (Metformin Hcl 500 Mg Tablet) 1,000 mg PO BIDWM [facility] Last Admin: 06/04/21 09:55 Dose: 1,000 mg Pantoprazole Sodium (Pantoprazole Sodium 40 Mg Tablet.Dr) 40 mg PO QDAC [facility] -- (NEW) Last Admin: 06/04/21 05:40 Dose: 40 mg Simvastatin (Simvastatin 10 Mg Tablet) 20 mg PO BEDTIME [facility] Last Admin: 06/03/21 20:13 Dose: 20 mg Sitagliptin Phosphate (Sitagliptin Phosphate 50 Mg Tablet) 100 mg PO DAILY [facility] Last Admin: 06/04/21 09:54 Dose: 100 mg Warfarin Sodium (Warfarin Sodium 5 Mg Tablet) 5 mg PO QPM [facility] -- (CHANGED) TRESIBA FLEXTOUCH U-100 60 UNITS SQ DAILY PREDNISONE 20 MG PO X 4 MORE DAYS ( START 06/05/2021 ) -- (NEW) LEVAQUIN 500 MG PO DAILY X 6 MORE DAYS ( START 06/05/2021) -- (NEW) ALLERGIES cortisone [Cortisone] Adverse Reaction (Verified 05/30/21 10:53) Penicillins Adverse Reaction (Verified 05/30/21 10:53) DISCONTINUED MEDICATIONS 1). Warfarin Sodium 6 mg PO QPM [facility] 2). ZANTAC 150 MG PO DAILY NEW PRESCRIPTIONS: 1).Pantoprazole Sodium 40 mg PO QDAC [facility] 2).Warfarin Sodium 5 mg PO QPM [facility] 3).PREDNISONE 20 MG PO X 4 MORE DAYS ( START 06/05/2021 ) 4).LEVAQUIN 500 MG PO DAILY X 6 MORE DAYS ( START 06/05/2021) SMOKING: SMOKELESS TOBACCO CESSATION DISEASE SPECIFIC EDUCATION: COVID PNEUMONIA COUMADIN GERD MEDICATIONS PANDEMIC LAB REVIEW: 06/04/21 04:40 06/04/21 04:40 06/04/21 04:40: ESR 32 H 06/04/21 04:40: Sodium 135.8, Potassium 4.24, Chloride 101.7, Carbon Dioxide 29.4, Anion Gap 8.94, BUN 36.6 H, Creatinine 1.29 H, Estimated GFR (MDRD) 55.00, BUN/Creatinine Ratio 28.37, Glucose 133.7 H, Calcium 9.09, Ferritin 232.00, Total Bilirubin 0.41, AST 18.4, ALT 18.6, Alkaline Phosphatase 29.8 L, Total Protein 6.54, Albumin 3.48 L, Globulin 3.06, Albumin/Globulin Ratio 1.13 06/04/21 04:40: WBC 12.07 H, RBC 4.52 L, Hgb 12.9 L, Hct 39.9 L, MCV 88.3, MCH 28.5, MCHC 32.3, RDW Coeff of Placido 13.9, Plt Count 296, Immature Gran % (Auto) 1.4, Neut % (Auto) 68.6, Lymph % (Auto) 22.9, [place] % (Auto) 6.6, Eos % (Auto) 0.4, Baso % (Auto) 0.1, Neut # (Auto) 8.3 H, Lymph # (Auto) 2.8, [place] # (Auto) 0.8, Eos # (Auto) 0.1, Baso # (Auto) 0.0, Immature Gran # (Auto) 0.2 06/04/21 04:40: PT 16.7 H D, INR 1.65 PLAN: DISCHARGE: HOME 06/04/2021 AND INDEPENDENT ACTIVITY: UP TOLERATED, WALK FREQUENTLY IN THE HOUSE, STAY IN WHILE IT IS COLD DON'T OVER DO IT, DO REST. STAY HOME UNTIL SEE MD AT FOLLOW UP PANDEMIC PRECAUTIONS BLEEDING PRECAUTIONS DIET: CONSISTENT CARBOHYDRATES AND AT LEAST 64 OZ OF WATER DAILY DIABETIC MANAGEMENT : CHECK BLOOD SUGARS BEFORE, CALL DOCTOR IF ANY QUESTIONS MD FOLLOW-UP: SEE DR. RIVERS/ LYNDSAY JONES APRN/ ELVA CAN APRN IN THE OFFICE ON JUNE 12, 2020 @ 0900 AM. CODE STATUS: DO NOT INTUBATE, CPR ONLY MR GALLEGOS IS ALERT AND ORIENTED X 4. NO DISTRESS AND NO SOA WITH ACTIVITY. OCCASIONAL COUGH OF WHITE SPUTUM. HE DOES NOT REQUIRE HOME OXYGEN, PER 3 STEP. HE IS UP TOLERATED WITHOUT ANY ASSISTIVE DEVICE. HE DID STATE THAT HIS VERTIGO ACTS UP AT TIMES WAS AT ADMISSION, NONE NOW. SKIN WARM DRY AND INTACT. CONTINENT OF BOWEL AND BLADDER. DID HAVE LOOSE/WATERY STOOLS INITIALLY, NOW RESOLVED, LAST BM 06/03. HE REMAINS INDEPENDENT AT HOME. MD LYNDSAY JARA APRN ALYCE HANNAN, APRN
--- NOTE | 2021-06-06 07:54 | DS ---
DATE OF SERVICE: 06/04/21 FINAL DIAGNOSIS: COVID 19 PNEUMONIA ACUTE RESPIRATORY FAILURE CHRONIC LUNG DISEASE HX: DIABETES, TYPE 2 A1C 7.7 ON 12/20 CKD, STAGE 3 CAD COPD CHF DYSLIPIDEMIA CLAUDICATION GERD HYPERTENSION A- FIB - COUMADIN THERAPY CVA IN 2002 DIABETIC NEUROPATHY RECURRENT DVT LVH ANGIOEDEMA SEVERE DJD SPINE OA, KNEES VERTIGO SJOGREN'S SYNDROME SYNCOPE R/T MARIJUANA USE NON-COMPLIANCE DIET, LIFESTYLE, MEDICATIONS AND FOLLOW UP AND RECOMMENDATION CATARACTS ED STRESS TEST SESTAMIBI POSITIVE ISCHEMIA - REFUSED CATH INSTRUCTED TO HAVE A STRESS TEST AGAIN ON 05/21 WHICH HE DID NOT GO TO ARTERIAL STUDY 04/21 HE ACTUALLY WENT TO ON 11/20 WAS NORMAL PROCEDURES: VENTRAL HERNIA REPAIR CHOLECYSTECTOMY COLONOSCOPY 02/17 LAST HEART CATH WAS 2008 LAST VITALS: Temp Pulse Resp BP Pulse Ox 97.6 F 61 16 125/50 L 97 06/04/21 06:00 06/04/21 06:00 06/04/21 06:00 06/04/21 06:00 06/04/21 09:48 DISCHARGE INSTRUCTIONS: DISCHARGE: HOME 06/04/2021 AND INDEPENDENT. DIABETIC MANAGEMENT : CHECK BLOOD SUGARS BEFORE, CALL DOCTOR IF ANY QUESTIONS. MD FOLLOW-UP: SEE DR. RIVERS/ LYNDSAY JONES APRN/ ELVA CAN APRN IN THE OFFICE ON JUNE 12, 2020 @ 0900 AM. CODE STATUS: DO NOT INTUBATE, CPR ONLY. TAKE THESE MEDICATIONS AT HOME: Hydrocodone Bitart/Acetaminophen (Hydrocodone Bit/Acetaminophen 10/325 Mg Tablet) 1 tab PO BID PRN PRN Reason: Pain Last Admin: 05/31/21 17:26 Dose: 1 tab Enalapril Maleate (Enalapril Maleate 5 Mg Tablet) 2.5 mg PO DAILY [facility] Last Admin: 06/04/21 09:55 Dose: 2.5 mg Fenofibrate (Fenofibrate 160 Mg Tablet) 160 mg PO DAILY [facility] Last Admin: 06/04/21 09:55 Dose: 160 mg Furosemide (Furosemide 40 Mg Tablet) 40 mg PO QDAC [facility] Last Admin: 06/04/21 05:40 Dose: 40 mg Metformin HCl (Metformin Hcl 500 Mg Tablet) 1,000 mg PO BIDWM COUNT INCLUDES [facility] Last Admin: 06/04/21 09:55 Dose: 1,000 mg Pantoprazole Sodium (Pantoprazole Sodium 40 Mg Tablet.) 40 mg PO QDAC [facility] -- (NEW) Last Admin: 06/04/21 05:40 Dose: 40 mg Simvastatin (Simvastatin 10 Mg Tablet) 20 mg PO BEDTIME [facility] Last Admin: 06/03/21 20:13 Dose: 20 mg Sitagliptin Phosphate (Sitagliptin Phosphate 50 Mg Tablet) 100 mg PO DAILY [facility] Last Admin: 06/04/21 09:54 Dose: 100 mg Warfarin Sodium (Warfarin Sodium 5 Mg Tablet) 5 mg PO QPM [facility] -- (CHANGED) TRESIBA FLEXTOUCH U-100 60 UNITS SQ DAILY PREDNISONE 20 MG PO X 4 MORE DAYS ( START 06/05/2021 ) -- (NEW) LEVAQUIN 500 MG PO DAILY X 6 MORE DAYS ( START 06/05/2021) -- (NEW) ALLERGIES: cortisone [Cortisone] Adverse Reaction (Verified 05/30/21 10:53) Penicillins Adverse Reaction (Verified 05/30/21 10:53) DISCONTINUED MEDICATIONS: 1). Warfarin Sodium 6 mg PO QPM [facility] 2). ZANTAC 150 MG PO DAILY NEW PRESCRIPTIONS: 1).Pantoprazole Sodium 40 mg PO QDAC [facility] 2).Warfarin Sodium 5 mg PO QPM [facility] 3).PREDNISONE 20 MG PO X 4 MORE DAYS ( START 06/05/2021 ) 4).LEVAQUIN 500 MG PO DAILY X 6 MORE DAYS ( START 06/05/2021) SMOKING: SMOKELESS TOBACCO CESSATION DISEASE SPECIFIC EDUCATION: COVID PNEUMONIA COUMADIN GERD MEDICATIONS PANDEMIC LAB REVIEW: 06/04/21 04:40 06/04/21 04:40 06/04/21 04:40: ESR 32 H 06/04/21 04:40: Sodium 135.8, Potassium 4.24, Chloride 101.7, Carbon Dioxide 29.4, Anion Gap 8.94, BUN 36.6 H, Creatinine 1.29 H, Estimated GFR (MDRD) 55.00, BUN/Creatinine Ratio 28.37, Glucose 133.7 H, Calcium 9.09, Ferritin 232.00, Total Bilirubin 0.41, AST 18.4, ALT 18.6, Alkaline Phosphatase 29.8 L, Total Protein 6.54, Albumin 3.48 L, Globulin 3.06, Albumin/Globulin Ratio 1.13 06/04/21 04:40: WBC 12.07 H, RBC 4.52 L, Hgb 12.9 L, Hct 39.9 L, MCV 88.3, MCH 28.5, MCHC 32.3, RDW Coeff of Placido 13.9, Plt Count 296, Immature Gran % (Auto) 1.4, Neut % (Auto) 68.6, Lymph % (Auto) 22.9, [place] % (Auto) 6.6, Eos % (Auto) 0.4, Baso % (Auto) 0.1, Neut # (Auto) 8.3 H, Lymph # (Auto) 2.8, [place] # (Auto) 0.8, Eos # (Auto) 0.1, Baso # (Auto) 0.0, Immature Gran # (Auto) 0.2 06/04/21 04:40: PT 16.7 H D, INR 1.65 ACTIVITY: UP TOLERATED, WALK FREQUENTLY IN THE HOUSE, STAY IN WHILE IT IS COLD DON'T OVER DO IT, DO REST. STAY HOME UNTIL SEE MD AT FOLLOW UP PANDEMIC PRECAUTIONS BLEEDING PRECAUTIONS DIET: CONSISTENT CARBOHYDRATES AND AT LEAST 64 OZ OF WATER DAILY HOSPITAL COURSE: This is a 70 year old white male who was admitted with shortness of breath. He had previously been diagnosed with COVID a few days before. Chest x-ray showed bilateral COVID pneumonia. ABG initially showed saturation in the 80s. He was placed on 2 liters of oxygen via nasal cannula. Started on Zithromax, Rocephin IV, Decadron 6mg IV along with Pepcid. He declined Remdesivir. He was also started on Vitamin D. Over the course of the next several days he responded very well. He had not been vaccinated. He did receive the IV infusion. Three step was done prior to discharge and he does not require any home oxygen. At time of discharge he is sating 94%. He has been on a shelter monitor. Vital signs are stable and labs look good. Kidney functions have improved BUN 36, creatinine 1.29, hgb stable at 12.9, INR is stable. He is Coumadin for history of PE and DVT. He continues to remain therapeutic. We will discharge him in stable condition. He is out of quarantine at this time. He will go home on Levaquin 500mg daily times 7 days, Prednisone 20mg daily times four more days also on Protonix. He did have some complaints of indigestion, acid reflux while he was here and started on Protonix 40mg daily so we will continue on that. We will follow with him closely. We will followup with him in the office next week if he has any symptoms he is instructed to return to ER such as shortness of breath. TIME SPENT: More than 60 minutes. TEN
--- NOTE | 2021-06-06 10:29 | PN ---
DATE OF SERVICE: 05/30/2021 SUBJECTIVE: The patient was hospitalized through the emergency room with complaint of being short of breath, cough and congestion. The patient had COVID 19 positive bronchitis type of symptoms. He was treated with Prednisone, steroids and Zithromax and says that his condition improved after he stopped antibiotics and steroids. He started becoming more short of breath and came to the emergency room. The patient was seen and examined by ER attending. X-ray showed bilateral infiltrate. His arterial blood gasses on 2 liters with oxygen saturation of 95%. Room air his oxygen saturation fluctuated from 88-89% to 92%. This patient has multiple comorbidities like history of CVA, hypertension and dyslipidemia, diabetes mellitus, atrial fibrillation, DVT and Obesity. The patient's entire History and Physical was done with Nurse Practitioner and the plan was made out. REVIEW OF SYSTEMS: CONSTITUTIONAL: No night sweats. No fatigue, malaise, lethargy. No fever or chills. HEENT: Eyes: No visual changes. No eye pain. No eye discharge. ENT: No runny nose. No epistaxis. No sinus pain. No sore throat. No odynophagia. No congestion. RESPIRATORY: No cough, no congestion. No hemoptysis. No shortness of breath. CARDIOVASCULAR: No angina symptoms. No CHF symptoms. No atypical chest pain for CAD. No palpitations. No PND. No orthopnea. GASTROINTESTINAL: No abdominal pain. No nausea or vomiting. No diarrhea or constipation. No hematemesis. No hematochezia. GENITOURINARY: No urgency. No frequency. No dysuria. No hematuria. No obstructive symptoms. No discharge. No pain. No significant abnormal bleeding. MUSCULOSKELETAL: No musculoskeletal pain; no joint swelling. NEUROLOGICAL: No headache. No neck pain. No syncope. No seizures. No dizziness. PSYCHIATRIC: Not anxious. No depression. No suicidal thoughts. No homicidal thoughts. SKIN: No rash. No lesions. No wounds. ENDOCRINE: No unexplained weight loss. No weight gain. HEMATOLOGIC/LYMPHATIC: No anemia. No purpura. No petechiae. No prolonged or excessive bleeding. No palpable lymph nodes. PHYSICAL EXAMINATION: HEENT: Head normocephalic, atraumatic. Eyes: Extraocular muscles are intact. Pupils are equal, round and reactive to light and accommodation. Ears: No lesions. Nose appeared normal. Throat: No exudate or erythema. NECK: Supple. No JVD, no carotid bruit. No lymphadenopathy or thyromegaly. LUNGS: Decreased breath sounds with mild expiratory wheeze. Breathing noted at times but mostly the patient is able to talk fluently no obvious shortness of breath noted. Clear to auscultation. Percussion note normal. Chest symmetrical. HEART: S1, S2, no S3. No murmurs. No cyanosis or clubbing. No ascites. Pulses: Dorsalis pedis and posterior tibial pulses +1 to +2 bilaterally. ABDOMEN: Soft. Nontender. Bowel sounds active. No CVA tenderness. No mass felt. EXTREMITIES: No edema. Full range of motion of all extremities, equal. NEUROLOGIC: No focal deficit. Cranial nerves II through XII are grossly intact. No headache. No double vision. SKIN: Not dry. Intact. Turgor - normal. LYMPHATIC: No palpable lymph nodes/no lymphedema. MUSCULOSKELETAL: Normal joints with no swelling. Muscle tone is normal. PLAN: 1. Start the patient on Zithromax 2. Rocephin 3. Steroids 4. 6mg Dexamethasone every day 5. Continue the rest of the medications 6. INR everyday 7. The patient is on Coumadin 8. Continue Tresiba. Going to bring it from home.The is going to do it. 9. Sliding scale with coverage because of steroid injections may cause diabetes to be uncontrolled 10.Telemetry 11.Echocardiogram to evaluate LV function. 12.CPR and LDH TIME SPENT: More than 30 minutes. Plan and coordination of the patient's care discussed in the presence of nurse. TEN
--- NOTE | 2021-06-06 10:35 | PN ---
DATE OF SERVICE: 06/01/2021 SUBJECTIVE: 70 year old white male hospitalized with COVID pneumonia. He has hypoxemia and respiratory failure on 2 liters oxygen saturation is 95%. The patient will have ABG on room air. REVIEW OF SYSTEMS: CONSTITUTIONAL: No night sweats. No fatigue, malaise, lethargy. No fever or chills. HEENT: Eyes: No visual changes. No eye pain. No eye discharge. ENT: No runny nose. No epistaxis. No sinus pain. No sore throat. No odynophagia. No congestion. RESPIRATORY: Mild cough, no congestion. No hemoptysis. No shortness of breath. CARDIOVASCULAR: No angina symptoms. No CHF symptoms. No atypical chest pain for CAD. No palpitations. No PND. No orthopnea. GASTROINTESTINAL: No abdominal pain. No nausea or vomiting. No diarrhea or constipation. No hematemesis. No hematochezia. GENITOURINARY: No urgency. No frequency. No dysuria. No hematuria. No obstructive symptoms. No discharge. No pain. No significant abnormal bleeding. MUSCULOSKELETAL: No musculoskeletal pain; no joint swelling. NEUROLOGICAL: No headache. No neck pain. No syncope. No seizures. No dizziness. PSYCHIATRIC: Not anxious. No depression. No suicidal thoughts. No homicidal thoughts. SKIN: No rash. No lesions. No wounds. ENDOCRINE: No unexplained weight loss. No weight gain. HEMATOLOGIC/LYMPHATIC: No anemia. No purpura. No petechiae. No prolonged or excessive bleeding. No palpable lymph nodes. PHYSICAL EXAMINATION: VITAL SIGNS: Temperature 97.9, pulse 60, respiratory rate 18, blood pressure 118/60 and pulse ox 99% with 2 liters. HEENT: Head normocephalic, atraumatic. Eyes: Extraocular muscles are intact. Pupils are equal, round and reactive to light and accommodation. Ears: No lesions. Nose appeared normal. Throat: No exudate or erythema. NECK: Supple. No JVD, no carotid bruit. No lymphadenopathy or thyromegaly. LUNGS: Decreased breath sounds but good air entry. Clear to auscultation. Percussion note normal. Chest symmetrical. HEART: S1, S2, no S3. No murmurs. No cyanosis or clubbing. No ascites. Pulses: Dorsalis pedis and posterior tibial pulses +1 to +2 bilaterally. ABDOMEN: Soft. Nontender. Bowel sounds active. No CVA tenderness. No mass felt. EXTREMITIES: No edema. Full range of motion of all extremities, equal. NEUROLOGIC: No focal deficit. Cranial nerves II through XII are grossly intact. No headache. No double vision. SKIN: Not dry. Intact. Turgor - normal. LYMPHATIC: No palpable lymph nodes/no lymphedema. MUSCULOSKELETAL: Normal joints with no swelling. Muscle tone is normal. LABS: Hgb 13.2, hct 40, WBC 11,900 normal differential, creatinine 1.2, BUN 27, potassium 4.8. Glucose 286. ASSESSMENT: 1. COVID 19 pneumonia with respiratory failure 2. History of CVA 3. Coronary artery disease 4. Atrial fibrillation 5. Chronic lung disease 6. Diabetes Mellitus PLAN: 1. Continue antibiotics, steroids and NEBS 2. Sliding coverage for sugar 3. Continue his home medication with Tresiba dose 4. Hold Coumadin today, Tomorrow start 5mg. INR is more than 3 today 5. The patient educated about COVID 19 status with pneumonia etc. CONDITION: Stable. TIME SPENT: More than 30 minutes. Plan and coordination of the patient's care discussed in the presence of nurse. TEN
--- NOTE | 2021-06-06 10:42 | PN ---
DATE OF SERVICE: 06/02/21 SUBJECTIVE: 70 year old white male hospitalized with COVID 19 pneumonia. The patient already had COVID 10 days. He was in respiratory failure. The patient's condition has improved remarkably on room air pO2 is 64 with pCO2 42 with normal pH with oxygen saturation 99%. REVIEW OF SYSTEMS: CONSTITUTIONAL: No night sweats. No fatigue, malaise, lethargy. No fever or chills. HEENT: Eyes: No visual changes. No eye pain. No eye discharge. ENT: No runny nose. No epistaxis. No sinus pain. No sore throat. No odynophagia. No congestion. RESPIRATORY: Mild cough, no congestion. No hemoptysis. No shortness of breath. CARDIOVASCULAR: No angina symptoms. No CHF symptoms. No atypical chest pain for CAD. No palpitations. No PND. No orthopnea. GASTROINTESTINAL: No abdominal pain. No nausea or vomiting. No diarrhea or constipation. No hematemesis. No hematochezia. GENITOURINARY: No urgency. No frequency. No dysuria. No hematuria. No obstructive symptoms. No discharge. No pain. No significant abnormal bleeding. MUSCULOSKELETAL: No musculoskeletal pain; no joint swelling. NEUROLOGICAL: No headache. No neck pain. No syncope. No seizures. No dizziness. PSYCHIATRIC: Not anxious. No depression. No suicidal thoughts. No homicidal thoughts. SKIN: No rash. No lesions. No wounds. ENDOCRINE: No unexplained weight loss. No weight gain. HEMATOLOGIC/LYMPHATIC: No anemia. No purpura. No petechiae. No prolonged or excessive bleeding. No palpable lymph nodes. PHYSICAL EXAMINATION: VITAL SIGNS: Temperature 98.4, pulse 86, respiratory rate 18, blood pressure 126/84 and pulse ox 95%. HEENT: Head normocephalic, atraumatic. Eyes: Extraocular muscles are intact. Pupils are equal, round and reactive to light and accommodation. Ears: No lesions. Nose appeared normal. Throat: No exudate or erythema. NECK: Supple. No JVD, no carotid bruit. No lymphadenopathy or thyromegaly. LUNGS: Decreased breath sounds but clear to auscultation. Percussion note normal. Chest symmetrical. HEART: S1, S2, no S3. No murmurs. No cyanosis or clubbing. No ascites. Pulses: Dorsalis pedis and posterior tibial pulses +1 to +2 bilaterally. ABDOMEN: Soft. Nontender. Bowel sounds active. No CVA tenderness. No mass felt. EXTREMITIES: No edema. Full range of motion of all extremities, equal. NEUROLOGIC: No focal deficit. Cranial nerves II through XII are grossly intact. No headache. No double vision. SKIN: Not dry. Intact. Turgor - normal. LYMPHATIC: No palpable lymph nodes/no lymphedema. MUSCULOSKELETAL: Normal joints with no swelling. Muscle tone is normal. LABS: hgb 13.6, hct 42. WBC 11,000 normal differential, creatinine 1.1, BUN 29, potassium 4.3 ASSESSMENT: 1. Acute respiratory failure seems to have resolved 2. COVID pneumonia, seems to be resolving faster than expected, CRP on 05/31 was 15 now it is 21 on 06/01. Markers are falling. PLAN: 1. Continue antibiotics, steroids and NEBS 2. Sugar is being covered with sliding scale 3. Telemetry is being monitored, The patient is in atrial fibrillation. No CHF, No coronary artery disease insufficiency symptoms. ADDENDUM: Later on the day the nurse called me. The patient had chest pain rated as 6-7 on scale of 1-10. The patient's pain was tightness in the chest going through to the back. Tightness type of feeling. Burping helped. EKG done which showed atrial fibrillation no acute changed. Troponin CK negative. The patient after 10-15 minutes with two nitroglycerin felt better. The patient is going to be Famotidine as ordered. Will add Protonix 40mg PO now and 40mg PO QAM. CODE: Extensive. TIME SPENT: More than 30 minutes. Plan and coordination of the patient's care discussed in the presence of nurse. TEN
--- NOTE | 2021-06-06 10:50 | PN ---
DATE OF SERVICE: 06/03/21 SUBJECTIVE: 70 year old white male was hospitalized with COVID 19 respiratory failure. Chest x-ray findings consistent with COVID. The patient already had 10 days of COVID at home. The patient during the stay in the hospital was treated with Zithromax, Rocephin and IV steroids and inhalers. His condition improved. His blood gasses showed almost 99% oxygen on room air. He has been feeling a lot better. REVIEW OF SYSTEMS: CONSTITUTIONAL: No night sweats. No fatigue, malaise, lethargy. No fever or chills. HEENT: Eyes: No visual changes. No eye pain. No eye discharge. ENT: No runny nose. No epistaxis. No sinus pain. No sore throat. No odynophagia. No congestion. RESPIRATORY: No cough, no congestion. No hemoptysis. No shortness of breath. CARDIOVASCULAR: No angina symptoms. No CHF symptoms. No atypical chest pain for CAD. No palpitations. No PND. No orthopnea. GASTROINTESTINAL: No abdominal pain. No nausea or vomiting. No diarrhea or constipation. No hematemesis. No hematochezia. GENITOURINARY: No urgency. No frequency. No dysuria. No hematuria. No obstructive symptoms. No discharge. No pain. No significant abnormal bleeding. MUSCULOSKELETAL: No musculoskeletal pain; no joint swelling. NEUROLOGICAL: No headache. No neck pain. No syncope. No seizures. No dizziness. PSYCHIATRIC: Not anxious. No depression. No suicidal thoughts. No homicidal thoughts. SKIN: No rash. No lesions. No wounds. ENDOCRINE: No unexplained weight loss. No weight gain. HEMATOLOGIC/LYMPHATIC: No anemia. No purpura. No petechiae. No prolonged or excessive bleeding. No palpable lymph nodes. PHYSICAL EXAMINATION: VITAL SIGNS: Temperature 97.2, pulse 60, respiratory rate 20, blood pressure 116/56 and pulse ox 94% on room air. HEENT: Head normocephalic, atraumatic. Eyes: Extraocular muscles are intact. Pupils are equal, round and reactive to light and accommodation. Ears: No lesions. Nose appeared normal. Throat: No exudate or erythema. NECK: Supple. No JVD, no carotid bruit. No lymphadenopathy or thyromegaly. LUNGS: Decreased breath sounds but clear to auscultation. Percussion note normal. Chest symmetrical. HEART: S1, S2, no S3. No murmurs. No cyanosis or clubbing. No ascites. Pulses: Dorsalis pedis and posterior tibial pulses +1 to +2 bilaterally. ABDOMEN: Soft. Nontender. Bowel sounds active. No CVA tenderness. No mass felt. EXTREMITIES: No edema. Full range of motion of all extremities, equal. NEUROLOGIC: No focal deficit. Cranial nerves II through XII are grossly intact. No headache. No double vision. SKIN: Not dry. Intact. Turgor - normal. LYMPHATIC: No palpable lymph nodes/no lymphedema. MUSCULOSKELETAL: Normal joints with no swelling. Muscle tone is normal. ASSESSMENT: 1. COVID 19 respiratory status with respiratory failure has resolved 2. The patient's other medical conditions are stable. TIME SPENT: More than 30 minutes. Plan and coordination of the patient's care discussed in the presence of nurse. TEN
--- NOTE | 2021-06-06 10:56 | PN ---
DATE OF SERVICE: 06/04/21 SUBJECTIVE: The patient was seen and examined with the Nurse Practitioner. The patient's condition is stable. His echo findings are unchanged with enlarged LA cavity, kinetic septum with ejection fraction close to 45-50%, LV size is normal. Valvular structure are normal. The patient's oxygen saturation more than 95% on room air even with exercise the patient's saturation stayed up. His COVID 19 status with infiltrate seems to have resolved completely. The patient again is advised to keep his A1c between 6-7. Discharge medication explained to him. TIME SPENT: More than 30 minutes. Plan and coordination of the patient's care discussed in the presence of nurse. TEN
--- NOTE | 2021-06-06 10:56 | PN ---
05/30: Level 5 05/31: Extensive 06/01: Intermediate 06/02: Extensive 06/03: Intermediate 06/04: D as in discharge MTDD
--- NOTE | 2021-06-06 12:22 | ECHO2D ---
Date of Exam: 06/04/2021 Ordering Physician: DR. RIVERS Room #: 105 Reason for Echo: ATRIAL FIBRILLATION, SHORTNESS OF BREATH M-Mode Normal Adult Results LV Dimensions Normal Adult Results AoV Opening excursions >1.6 >1.6 LVEDD-base- 3.5-5.8 5.1 Ao root dimensions 2.0-3.7 3.9 LVESD-base- 3.1-4.6 L. Atrium dimensions 1.9-3.8 5.5 Post. Wall thickness 0.8-1.1 1.2 IV septum (thickness) 0.7-1.2 1.4 Post. Wall excursion 0.72-1.3 NORMAL Septal motion 0.7 Systolic motion R. Ventricular cavity 1.5-2.0 NORMAL LVEF 60% 50 - 55% Paradoxical septal wall motion NORMAL 2-D : ENLARGED LEFT ATRIAL CAVITY, MILDLY HYPOKINETIC SEPTAL WALL, NORMAL VALVES, NO EFFUSION, NO THROMBUS, LEFT VENTRICLE SIZE IS NORMAL M-MODE: MV: NORMAL AV: NORMAL TV: NORMAL PV: CHAMBER SIZE: ENLARGED LEFT ATRIAL CAVITY WALL MOTION: HYPOKINETIC SEPTAL WALL PERICARDIUM: NORMAL INTERPRETATION: 1. LEFT VENTRICULAR HYPERTROPHY WITH ENLARGED LEFT ATRIAL SIZE (5.5CM) 2. MILDLY HYPOKINETIC SEPTUM WITH EJECTION FRACTION 50 TO 55% (ATRIAL FIBRILLATION) 3. NORMAL LEFT VENTRICLE SIZE 4. NORMAL VALVES MTDD
== END 2021-06-04 13:45 | disposition home or self-care (01) | DRG 177 ==
LOC: ED 10:38 → MEDSURG B 13:52 → MEDSURG A 06-02 09:21
PROVIDERS: ADMIT Internal Medicine; ATTEND Internal Medicine
DX: M35.00 Sjogren syndrome, unspecified; Z51.81 Encounter for therapeutic drug level monitoring; J12.82 Pneumonia due to coronavirus disease 2019; N18.30 Chronic kidney disease, stage 3 unspecified; Z91.19 Patient's noncompliance with other medical treatment and regimen; R55 Syncope and collapse; M17.0 Bilateral primary osteoarthritis of knee; I10 Essential (primary) hypertension; Z79.01 Long term (current) use of anticoagulants; I48.11 Longstanding persistent atrial fibrillation; J44.9 Chronic obstructive pulmonary disease, unspecified; Z86.73 Personal history of transient ischemic attack (TIA), and cerebral infarction without residual deficits; J96.00 Acute respiratory failure, unspecified whether with hypoxia or hypercapnia; I51.7 Cardiomegaly; Z86.718 Personal history of other venous thrombosis and embolism; E78.5 Hyperlipidemia, unspecified; E11.9 Type 2 diabetes mellitus without complications; I50.9 Heart failure, unspecified; G62.9 Polyneuropathy, unspecified; U07.1 COVID-19; Z79.899 Other long term (current) drug therapy

== ENCOUNTER 2024-02-17 01:36 | Observation (INO) ==
--- NOTE | 2024-02-17 01:49 | ED.PDOC ---
General ED Provider: Dr. KRISHNA SNYDER MD Chief Complaint: Shortness of Air Stated Complaint: Patient is a 73-year-old male that reported to the emergency department for shortness of breath. Patient stated that he woke up yesterday morning and did not feel very well. Patient stated that he has been around other contacts with similar symptoms and that were diagnosed with COVID. Patient stated that he tried to rest the rest of the day yesterday and continued to get worse. He stated that he laid down last night and continued to get short of breath. Patient denied taking any medications for his current symptoms. Patient states that nothing makes his symptoms worse or better. Patient states that he has not had any chest pain, dizziness, syncope, loss consciousness, headache, fever, sore throat, or any other acute symptoms not currently mentioned in HPI. Patient's GCS is 15. Vital signs are stable. Patient's blood pressure is stable. Time Seen by Provider: 02/17/24 01:39 Mode of Arrival: Walk-In Information Source: Patient Exam Limitations: No limitations Primary Care Provider: DAWSON RIVERS MD Nursing and Triage Documentation Reviewed and Agree: Yes Does Patient Take Opioids?: No Is Patient Opioid Naive?: No What is Opioid Naive?: *Opioid Naive implies the patient is not already taking opioids or not chronically receiving opioids on a daily basis. *PRN dosing is not "usually" associated with tolerance. *Patients are at higher risk of over-sedation and aspiration. Is Patient Opioid Tolerant?: No What is Opioid Tolerant?: *Opioid Tolerance implies less than the expected response to an opioid. *Acquired tolerance is defined by the patient taking 60mg of oral morphine daily (or equianalgesic dose of another opioid) for 1 week or more. *Often associated with chronic pain. *May take more than usual dose to achieve desired pain control. Review of Systems Review Of Systems Constitutional: Reports Chills and Weakness Eyes: Reports No symptoms Ears, Nose, Mouth, Throat: Reports No symptoms Respiratory: Reports Shortness of Breath Cardiac: Reports No symptoms GI: Reports No symptoms : Reports No symptoms Musculoskeletal: Reports No symptoms Skin: Reports No symptoms Neurological: Reports No symptoms Endocrine: Reports No symptoms Hematologic/Lymphatic: Reports No symptoms All Other Systems: Reviewed and Negative [facility] Medical History CHF (congestive heart failure) I50.9 - Heart failure, unspecified (ICD-10) Angioedema T78.3XXA - Angioneurotic edema, initial encounter (ICD-10) CVA (cerebrovascular accident due to intracerebral hemorrhage) 2002 I61.9 - Nontraumatic intracerebral hemorrhage, unspecified (ICD-10) COVID-19 05/2021, 11/2021 U07.1 - COVID-19 (ICD-10) Family History Mother Diabetes FATHER Heart disease BROTHER Diabetes Social History Smokeless tobacco user: chewing tobacco Alcohol intake: never Substance use type: marijuana Special irene needs: No Agree to transfusion: Yes Adopted: No Caregiver/support person: No Foster care: No Household members: spouse Housing: house Marital status: M Lives independently: Yes Number of children: 1 service: No Pets and animals: Yes History of recent travel: No Do you think of yourself as: straight/heterosexual Current gender identity: male Seatbelt use: always Drives intoxicated or rides with intoxicated hazardous materials tanker driver: No Water heater temperature set < 120 degrees: Yes Working smoke detector in home: Yes Fire extinguisher in home: Yes Carbon monoxide detector in home: No Physical Exam Physical Exam Appearance: Reports Ill-appearing and Well-nourished Ill-appearing: Mild Pain Distress: None Eyes: Reports KENNY, EOMI and Conjunctiva clear ENT: Reports Nose normal and Oropharynx normal Neck: Supple Respiratory: Reports Airway patent, Breath sounds clear, Breath sounds equal and Rhonchi Cardiovascular: Reports No rub, No murmur, Irregular rhythm (Patient's rhythm was irregularly irregular.) and Tachycardia (Patient had an apical pulse of 102 bpm.) GI/: Reports Soft, Nontender and Bowel sounds normal Musculoskeletal: Reports Normal strength and ROM intact Skin: Reports Warm and Dry Neurological: Reports Sensation intact and Motor intact Psychiatric: Reports Affect appropriate and Mood appropriate Course Course 02/17/24 02:15 Orders, Labs, Meds: Lab Review 02/17/24 02/17/24 01:43 02:15 WBC 6.76 RBC 4.42 L Hgb 13.1 L Hct 41.5 L MCV 93.9 MCH 29.6 MCHC 31.6 L RDW Coeff of [place]ac[place] 14.0 Plt Count 214 Immature Gran % (Auto) 0.3 Neut % (Auto) 80.1 H Lymph % (Auto) 10.5 [place] % (Auto) 8.1 Eos % (Auto) 0.7 Baso % (Auto) 0.3 Neut # (Auto) 5.4 Lymph # (Auto) 0.7 [place] # (Auto) 0.6 Eos # (Auto) 0.1 Baso # (Auto) 0.0 Immature Gran # (Auto) 0.0 Influ A Molecular Assay Negative by naat Influ B Molecular Assay Negative by naat RSV Antigen Negative by naat SARS CoV-2 RNA Rapid PAVAN Positive H Orders Category Date Time Status EKG-(ED ONLY) Stat CARDIO 02/17/24 01:44 Completed BLOOD CULTURE (ED ONLY) Stat LAB 02/17/24 Ordered CBC W/ AUTO DIFF Stat LAB 02/17/24 02:15 Completed CMP [COMPREHENSIVE METABOLIC PANEL] Stat LAB 02/17/24 01:44 Ordered COVID [SARS COV-2 RNA RAPID PAVAN] Stat LAB 02/17/24 01:43 Completed FLU A & B MOLECULAR [FLU A/B MOLECULAR] Stat LAB 02/17/24 01:43 Completed LACTIC ACID Stat LAB 02/17/24 01:46 Ordered MAGNESIUM Stat LAB 02/17/24 01:44 Ordered RAPID STREP SCREEN [MOLECULAR GROUP A STREP] Stat LAB 02/17/24 01:43 Completed RSV Stat LAB 02/17/24 01:43 Completed Sodium Chloride 0.9% [Sodium Chloride] 1,000 ml Meds 02/17/24 01:44 Active IV BOLUS CHEST, 1V AP ONLY Stat RADS 02/17/24 01:49 Completed Medications Generic Name Dose Route Start Last Admin Trade Name Freq PRN Reason Stop Dose Admin Sodium Chloride 1,000 mls @ 1,000 mls/hr 02/17/24 01:44 02/17/24 02:16 Sodium Chloride IV 02/17/24 02:43 1,000 mls/hr BOLUS ONE Administration Vital Signs: Temp Pulse Resp BP Pulse Ox 02/17/24 01:43 100.0 F 89 20 154/80 H 96 Discharge Plan Discharge Patient Disposition: PLACED OBSERVATION Discharge Problem: COVID, Anemia of chronic disease, Atrial fibrillation with controlled ventricular rate, Acute hypoxemic respiratory failure DM type 2 (diabetes mellitus, type 2) Qualifiers: Diabetes mellitus longterm insulin use: unspecified longterm insulin use status Diabetes mellitus complication status: with hyperglycemia Qualified Code(s): E11.65 - Type 2 diabetes mellitus with hyperglycemia Did you review [place] [employer] for ALL controlled substances?: Not Applicable ED Provider: KRISHNA SNYDER Condition: Stable Physician Progress Note: Patient is a 73-year-old male that reported to the emergency department for shortness of breath. Patient stated that he woke up yesterday morning and did not feel very well. Patient stated that he has been around other contacts with similar symptoms and that were diagnosed with COVID. Patient stated that he tried to rest the rest of the day yesterday and continued to get worse. He stated that he laid down last night and continued to get short of breath. Patient denied taking any medications for his current symptoms. Patient states that nothing makes his symptoms worse or better. Patient states that he has not had any chest pain, dizziness, syncope, loss consciousness, headache, fever, sore throat, or any other acute symptoms not currently mentioned in HPI. Patient's GCS is 15. Vital signs are stable. Patient's blood pressure is stable. -Will give the patient IV normal saline 1 L bolus for dehydration. -Will order chest x-ray, EKG, baseline labs, COVID test, influenza test, RSV test, and strep test. -EKG shows atrial fibrillation with rate controlled. Patient's ventricular rate is [address] elevations noted. This was interpreted by the ER physician. -Chest x-ray showed no acute cardiopulmonary disease. This was interpreted by the ER physician. -Patient positive for COVID. -CBC shows the patient has anemia of chronic disease with a hemoglobin of 13 and hematocrit of 41. -Patiently currently on 2 L nasal cannula to keep his O2 sat above 94%. -([id number]) spoke to hospitalist at [facility] and discussed patient's acute hypoxic respiratory failure and requiring 2 L nasal cannula to keep his O2 above 94%. Discussed patient's diagnosis of COVID. Discussed patient's current treatment and current labs and radiographs. She has agreed to admit the patient for observation.
[2024-02-17 02:09] LABS: SARS COV-2 RNA RAPID NAAT POSITIVE (NEGATIVE)
[2024-02-17] MEDS: SODIUM CHLORIDE 1,000 ML IV ONE (02:16)
--- NOTE | 2024-02-17 02:16 | DI ---
EXAM: CHEST, ONE-VIEW HISTORY: Shortness of breath FINDINGS: Cardiac and mediastinal contours are normal. Pulmonary vasculature is normal. Lungs are clear. Bon y thorax is unremarkable. IMPRESSION: Within normal limits
[2024-02-17 02:18] LABS: BASOPHILS % (AUTO) 0.3 % (0.0-3.0); EOSINOPHILS # (AUTO) 0.1 K/ul (0.0-0.7); EOSINOPHILS % (AUTO) 0.7 % (0.0-7.0); HEMATOCRIT 41.5 % (42.0-52.0); HEMOGLOBIN 13.1 g/dl (14.0-18.0); IMMATURE GRANULOCYTE % (AUTO) 0.3 % (0.0-5.0); LYMPHOCYTES # (AUTO) 0.7 K/uL (0.60-3.4); LYMPHOCYTES % (AUTO) 10.5 (10.0-50.0); MEAN CORPUSCULAR HEMOGLOBIN 29.6 pg (27.0-31.0); MEAN CORPUSCULAR HGB CONC 31.6 (31.8-35.4); MEAN CORPUSCULAR VOLUME 93.9 fl (80.0-94.0); MONOCYTES # (AUTO) 0.6 K/uL (0.4-2.0); MONOCYTES % (AUTO) 8.1 (0-10); NEUTROPHILS # (AUTO) 5.4 K/ul (2.0-6.9); NEUTROPHILS % (AUTO) 80.1 % (42.2-75.2); PLATELET COUNT 214 10^3/uL (140-440); RED BLOOD COUNT 4.42 10^6/ul (4.70-6.10); WHITE BLOOD COUNT 6.76 K/ul (4.2-10.2)
[2024-02-17 02:23] LABS: MOLECULAR FLU A NEGATIVE BY NAAT (NEGATIVE); MOLECULAR FLU B NEGATIVE BY NAAT (NEGATIVE); RSV MOLECULAR NEGATIVE BY NAAT (NEGATIVE)
[2024-02-17 02:30] LABS: BLOOD UREA NITROGEN 19.1 mg/dL (9-20); CALCIUM 8.72 mg/dL (8.4-10.2); CARBON DIOXIDE 24.2 mmol/L (22-30.0); CHLORIDE 104.6 mmol/L (98-107); CREATININE 1.26 mg/dL (0.60-1.10); POTASSIUM 4.08 mmol/L (3.5-5.1); SODIUM 135.8 mmol/L (134.5-145)
[2024-02-17 02:31] LABS: ALANINE AMINOTRANSFERASE 16.3 U/L (0-50); ALBUMIN 4.16 g/dL (3.5-5.0); ALKALINE PHOSPHATASE 36.2 U/L (56-119); ASPARTATE AMINO TRANSFERASE 30.9 U/L (17-59); BILIRUBIN,TOTAL 0.58 mg/dL (0.2-1.3); MAGNESIUM 1.63 mg/dL (1.6-2.3); TOTAL PROTEIN 7.58 g/dL (6.3-8.2)
[2024-02-17 02:42] LABS: PROTHROMBIN TIME 26.3 SEC (9.3-11.0)
[2024-02-17] MEDS: DUONEB NEB STA (02:46)
[2024-02-17 04:37] VITALS: BMI 31.9
[2024-02-17 05:17] LABS: BASOPHILS % (AUTO) 0.5 % (0.0-3.0); EOSINOPHILS % (AUTO) 0.3 % (0.0-7.0); HEMATOCRIT 37.4 % (42.0-52.0); HEMOGLOBIN 11.8 g/dl (14.0-18.0); IMMATURE GRANULOCYTE % (AUTO) 0.3 % (0.0-5.0); LYMPHOCYTES # (AUTO) 1.1 K/uL (0.60-3.4); LYMPHOCYTES % (AUTO) 17.7 (10.0-50.0); MEAN CORPUSCULAR HEMOGLOBIN 29.9 pg (27.0-31.0); MEAN CORPUSCULAR HGB CONC 31.6 (31.8-35.4); MEAN CORPUSCULAR VOLUME 94.7 fl (80.0-94.0); MONOCYTES # (AUTO) 0.5 K/uL (0.4-2.0); MONOCYTES % (AUTO) 8.2 (0-10); NEUTROPHILS # (AUTO) 4.4 K/ul (2.0-6.9); PLATELET COUNT 180 10^3/uL (140-440); RED BLOOD COUNT 3.95 10^6/ul (4.70-6.10); WHITE BLOOD COUNT 6.09 K/ul (4.2-10.2)
[2024-02-17 05:29] LABS: BLOOD UREA NITROGEN 18.3 mg/dL (9-20); CALCIUM 8.18 mg/dL (8.4-10.2); CARBON DIOXIDE 24.9 mmol/L (22-30.0); CHLORIDE 105.8 mmol/L (98-107); CREATININE 1.2 mg/dL (0.60-1.10); GLUCOSE 175.6 mg/dL (74-106); POTASSIUM 4.03 mmol/L (3.5-5.1); SODIUM 136.2 mmol/L (134.5-145)
[2024-02-17 05:31] LABS: PROTHROMBIN TIME 26.7 SEC (9.3-11.0)
[2024-02-17] MEDS ORDERED: NORCO 10-325 PO PRN (08:22)
[2024-02-17] MEDS: ASPIRIN EC PO SCH (09:11)
[2024-02-17] MEDS: LASIX TAB PO SCH (09:11)
[2024-02-17] MEDS: VASOTEC PO SCH (09:11)
[2024-02-17] MEDS: TRIGLIDE PO SCH (09:12)
[2024-02-17] MEDS: FLONASE NAS SCH (10:03)
[2024-02-17] MEDS: TYLENOL PO PRN (10:03)
--- NOTE | 2024-02-17 10:15 | PCM.SS ---
Provider Provider: J[facility]ELLE PEREZ PA-C, [facility] Ad[facility] Date Admission Date: 02/17/24 Discharge Date Discharge Date: 02/17/24 Primary Care Physician Primary Care Physician: DAWSON RIVERS MD Chief Complaint Reason For Visit: ACUTE HYPOXIA/RESPIRATORY FAILURE/+ COVID History of Present Illness History of Present Illness: Admitted 02/17/24 03:21, this 73 year old /WHITE/M with pmhx of TIA/CVA, CHF, A fib on chronic anticoagulation with warfarin, DMT2, PAD, obesity, hypertension, hyperlipidemia, hx of DVT, who presents to ER with worsening sob since Friday. Pt states last Friday he started to have some nasal congestion. A granddaughter tested positive for covid recently. In the ER he was positive for covid. CXR negative. He was noted to be about 90% on RA and placed on 2L. He has been on RA since being on the floor. He is feeling better. No SOB. He has been ambulatory and up to the bathroom. He complains of some sinus pressure. Denies hx of covid vaccine. This is his 3rd round of covid. States last time he did well on paxlovid. INR normal today. [facility] Medical History History of aneurysm Z86.79 - Personal history of other diseases of the circulatory system (ICD- 10) TIA (transient ischemic attack) G45.9 - Transient cerebral ischemic attack, unspecified (ICD-10) CHF (congestive heart failure) I50.9 - Heart failure, unspecified (ICD-10) Angioedema T78.3XXA - Angioneurotic edema, initial encounter (ICD-10) CVA (cerebrovascular accident due to intracerebral hemorrhage) 2002 I61.9 - Nontraumatic intracerebral hemorrhage, unspecified (ICD-10) COVID-19 05/2021, 11/2021 U07.1 - COVID-19 (ICD-10) Family History Mother Diabetes FATHER Heart disease BROTHER Diabetes Social History Smokeless tobacco user: chewing tobacco Alcohol intake: never Substance use type: marijuana Special irene needs: No Agree to transfusion: Yes Adopted: No Caregiver/support person: No Foster care: No Household members: spouse Housing: house Marital status: M Lives independently: Yes Number of children: 1 service: No Pets and animals: Yes History of recent travel: No Do you think of yourself as: straight/heterosexual Current gender identity: male Seatbelt use: always Drives intoxicated or rides with intoxicated driver messenger: No Water heater temperature set < 120 degrees: Yes Working smoke detector in home: Yes Fire extinguisher in home: Yes Carbon monoxide detector in home: No Medications Mecications: Medications at Discharge (Home Meds & RX) atorvastatin 40 mg tablet See Rx Instructions .Route .COMPLEX #90 tabs 12/16/23 enalapril maleate 10 mg tablet See Rx Instructions .Route .COMPLEX #90 tabs 12/16/23 fenofibrate 160 mg tablet See Rx Instructions .Route .COMPLEX #90 tabs 12/16/23 furosemide 20 mg tablet See Rx Instructions .Route .COMPLEX #90 tabs 12/16/23 sildenafil 50 mg tablet 50 mg PO QDAY PRN sexual activity #10 tabs 12/16/23 warfarin 5 mg tablet See Rx Instructions .Route .COMPLEX #90 tabs 12/16/23 semaglutide 7 mg tablet (Rybelsus) 7 mg PO QDAY #30 tabs 12/30/23 aspirin 81 mg tablet,delayed release (Adult Aspirin Regimen) 81 mg PO QDAY 01/12/24 hydrocodone 10 mg-acetaminophen 325 mg tablet 1 tab PO BID PRN Severe Pain #60 tabs 01/19/24 Allergies Allergies Allergy/AdvReac Type Severity Reaction Status Date / Time cortisone [Cortisone] AdvReac Severe Anaphylaxis Verified 02/17/24 01:46 Penicillins AdvReac Palpitation Verified 02/17/24 01:46 s Review of Systems Constitutional: Reports Fatigue; Denies Fever Head: Reports Normocephalic and Atraumatic Cardiovascular: Denies Chest pain, Chest Pressure or Edema Respiratory: Reports Cough and Shortness of air Gastrointestinal: Denies Nausea, Vomiting, Diarrhea, Abdominal pain or Melena Genitourinary: Denies Dysuria or Hematuria Dermatologic: Denies Rashes Neurological: Reports Headache; Denies Dizziness, Syncope, Weakness or Problems with walking Physical Examination Appearance: Positive No Apparent Distress and Alert and Oriented x3 Head: Positive Normocephalic and Atraumatic Neck: Positive Supple, Non-Tender and Trachea Midline Heart: Positive Other (+irregularly irregular ) Respiratory: Positive Breath Sounds Clear, Bilaterally, Respirations Nonlabored and Other (+speaking full sentences, carrying on conversation easily, laughing, etc ); Negative Crackles, Rhonchi or Wheezes GI/: Positive Soft, Nontender, Bowel sounds normal and No Distention Extremities: Negative Edema Neurological: Positive Cranial nerves intact, Alert and Oriented Psychiatric: Positive Normal Judgement, Normal Insight, Affect Appropriate and Mood Appropriate Vital Signs (Last 4 Hours) Vital Signs Last 4 Hours: Vital Signs: Last 4 Hours 02/17/24 07:00 02/17/24 07:00 02/17/24 08:00 Pulse Rate [Apical] Respiratory Rate O2 Sat by Pulse Oximetry Oxygen Delivery Method Room Air Room Air Telemetry Type Bedside Monitor Telemetry Monitoring Continues Telemetry Heart Rate 67 Telemetry SPO2 94 EKG QRS Interval 0.06 Telemetry Strip Reading A-FIB 02/17/24 08:00 02/17/24 08:57 02/17/24 09:08 Pulse Rate [Apical] 68 Respiratory Rate 16 O2 Sat by Pulse Oximetry 93 L Oxygen Delivery Method Room Air Room Air Room Air Telemetry Type Telemetry Monitoring Telemetry Heart Rate Telemetry SPO2 EKG QRS Interval Telemetry Strip Reading Labs This Visit Labs This Visit: Labs This Visit 02/17/24 02/17/24 02/17/24 01:43 02:15 02:20 WBC 6.76 RBC 4.42 L Hgb 13.1 L Hct 41.5 L MCV 93.9 MCH 29.6 MCHC 31.6 L RDW Coeff of Plac[place] 14.0 Plt Count 214 Immature Gran % (Auto) 0.3 Neut % (Auto) 80.1 H Lymph % (Auto) 10.5 [place] % (Auto) 8.1 Eos % (Auto) 0.7 Baso % (Auto) 0.3 Neut # (Auto) 5.4 Lymph # (Auto) 0.7 [place] # (Auto) 0.6 Eos # (Auto) 0.1 Baso # (Auto) 0.0 Immature Gran # (Auto) 0.0 PT 26.3 H INR 2.67 Sodium 135.8 Potassium 4.08 Chloride 104.6 Carbon Dioxide 24.2 Anion Gap 11.08 BUN 19.1 Creatinine 1.26 H Estimated GFR (MDRD) 56.00 BUN/Creatinine Ratio 15.15 Glucose 203.0 H Lactic Acid 0.81 Calcium 8.72 Magnesium 1.63 Total Bilirubin 0.58 AST 30.9 ALT 16.3 Alkaline Phosphatase 36.2 L Total Protein 7.58 Albumin 4.16 Globulin 3.42 Albumin/Globulin Ratio 1.21 Influ A Molecular Assay Negative by naat Influ B Molecular Assay Negative by naat RSV Antigen Negative by naat SARS CoV-2 RNA Rapid PAVAN Positive H 02/17/24 05:07 WBC 6.09 RBC 3.95 L Hgb 11.8 L Hct 37.4 L MCV 94.7 H MCH 29.9 MCHC 31.6 L RDW Coeff of [place] 14.0 Plt Count 180 Immature Gran % (Auto) 0.3 Neut % (Auto) 73.0 Lymph % (Auto) 17.7 [place] % (Auto) 8.2 Eos % (Auto) 0.3 Baso % (Auto) 0.5 Neut # (Auto) 4.4 Lymph # (Auto) 1.1 [place] # (Auto) 0.5 Eos # (Auto) 0.0 Baso # (Auto) 0.0 Immature Gran # (Auto) 0.0 PT 26.7 H INR 2.72 Sodium 136.2 Potassium 4.03 Chloride 105.8 Carbon Dioxide 24.9 Anion Gap 9.53 BUN 18.3 Creatinine 1.20 H Estimated GFR (MDRD) 60.00 BUN/Creatinine Ratio 15.25 Glucose 175.6 H Lactic Acid Calcium 8.18 L Magnesium Total Bilirubin AST ALT Alkaline Phosphatase Total Protein Albumin Globulin Albumin/Globulin Ratio Influ A Molecular Assay Influ B Molecular Assay RSV Antigen SARS CoV-2 RNA Rapid PAVAN Microbiology This Visit 02/17/24 01:43 Throat Group A Strep Molecular Assay - Final Imaging Imaging: EXAM: CHEST, ONE-VIEW HISTORY: Shortness of breath FINDINGS: Cardiac and mediastinal contours are normal. Pulmonary vasculature is normal. Lungs are clear. Bony thorax is unremarkable. IMPRESSION: Within normal limits Review Review Statement: I have independently reviewed and interpreted the labs/EKGs/imaging that were ordered by the ER provider. I have reviewed all outside records that are available currently in our EMR including imaging/notes/labs from previous visits. Plan Reccomendations/Plan: 1. Covid 19 - Within window to start paxlovid. Not ideal with his warfarin but he prefers not to do remdesivir. He has done paxlovid in the past. Will require close monitoring of his INR. Covid isolation. 2. Acute hypoxic respiratory failure in setting of covid 19 - Resolved, pt has been on RA >93%. Pt walked in room with RT and did not drop. 3. Hypertension - Cont home meds 4. Hyperlipidemia - Cont home meds 5. A fib/ hx of DVT - Cont warfarin, inr normal 6. DMT2 - Cont home meds He has been on RA since being on the floor. He is feeling better. No SOB. He has been ambulatory and up to the bathroom. He complains of some sinus pressure. Denies hx of covid vaccine. This is his 3rd round of covid. States last time he did well on paxlovid. INR normal today. Pharmacy recommends close monitoring of INR while taking paxlovid, with INRs about every other day. Discussed with PCP Dr. Rivers, he is in agreement, states to have patient come in on for INR check. RT walked patient and oxygen remained normal. Pt educated on red flags on when to return. Dc on paxlovid and albuterol inhaler prn. Pt agrees to plan of care. Discharge diagnoses: 1. Covid 19 2. Acute hypoxic respiratory failure in setting of covid 19, resolved 3. Hypertension 4. Hyperlipidemia 5. A fib/hx of DVT 6. DMT2 Additional Planning: Case discussed with ED Physician, Dr. Posada. DVT Prophylaxis: Warfarin Advanced Care Plannin minutes spent discussing advance care planning. Admit to: Obs Discussed Plan of Care with Dr. Jose Manuel Rivers. Review With Patient Reviewed with Patient and Family: Patient and family have been counseled on condition and care plan and have no immediate questions. I have personally discussed and reviewed the patient's visit/current labs/imaging/decision making with Dr. Jose Manuel Rivers, my supervising attending. Total number of minutes spent with patient [85] min. More than 50% of the time spent with this patient was devoted to counseling and coordination of care. Time of Admission:02/17/24 03:21 Time of Discharge: 02/17/24 1015 Discharge Plan Discharge Discharge Orders: Discharge Patient (ONCE); Ordered 02/17/24 Ordered By: JANELLE PEREZ Activity Restrictions/Additional Instructions: DISCHARGE TO HOME DX: COVID DIET: DIABETIC ACTIVITY: TOLERATED RETURN WITH WORSENING SYMPTOMS COVID ISOLATION RECOMMENDED FOR TOTAL OF 5-[address] Rivers's office will be following up with you for your PT/INR. Instructions: Shortness of Breath (DC), COVID-19 (Coronavirus Disease 2019) (DC) Care Plan Goals: Problem: Impaired Respiratory Status Goal: Exhibit optimal respiratory function Instructions: Activities as tolerated Apply oxygen as ordered Elevate head of bed Notify MD of increased congestion Patient Disposition: HOME SELF-CARE Prescriptions: New Paxlovid 300 mg (150 mg x 2)-100 mg tablets,dose pack See Rx Instructions .ROUTE .COMPLEX Qty: 30 0RF Rx Instructions: take TWO 150 mg tablets of nirmatrelvir with ONE 100 mg tablet of ritonavir twice daily for 5 days albuterol sulfate 90 mcg/actuation aerosol powdr breath activated 2 inh inhalation Q4-6H PRN (Reason: sob) Qty: 1 0RF Continued atorvastatin 40 mg tablet See Rx Instructions .ROUTE .COMPLEX Qty: 90 1RF Dose Instruction: TAKE ONE TABLET DAILY Rx Instructions: TAKE ONE TABLET DAILY enalapril maleate 10 mg tablet See Rx Instructions .ROUTE .COMPLEX Qty: 90 1RF Dose Instruction: TAKE ONE TABLET DAILY Rx Instructions: TAKE ONE TABLET DAILY fenofibrate 160 mg tablet See Rx Instructions .ROUTE .COMPLEX Qty: 90 1RF Dose Instruction: TAKE ONE TABLET DAILY Rx Instructions: TAKE ONE TABLET DAILY furosemide 20 mg tablet See Rx Instructions .ROUTE .COMPLEX Qty: 90 1RF Dose Instruction: TAKE ONE TABLET EVERY MORNING Rx Instructions: TAKE ONE TABLET EVERY MORNING sildenafil 50 mg tablet 50 mg PO QDAY PRN (Reason: sexual activity) Qty: 10 5RF Rx Instructions: administer 30 minutes to 4 hours before activity warfarin 5 mg tablet See Rx Instructions .ROUTE .COMPLEX Qty: 90 1RF Dose Instruction: TAKE 1 TABLET BY MOUTH EVERY DAY Rx Instructions: TAKE 1 TABLET BY MOUTH EVERY DAY hydrocodone-acetaminophen 10-325 mg tablet 1 tab PO BID PRN (Reason: Severe Pain) Qty: 60 0RF Rybelsus 7 mg tablet 7 mg PO QDAY Qty: 30 3RF aspirin [Adult Aspirin Regimen] 81 mg tablet,delayed release (DR/EC) 81 mg PO QDAY Did you review [place] THRESHING OPERATOR for ALL controlled substances?: Not Applicable Discussed opioids are addictive and Narcan is available by prescription or from pharmacy.: No Condition: Stable Referrals: DAWSON RIVERS MD [Primary Care Provider] - 1-2 Weeks
[2024-02-17 11:13] VITALS: BP 140/80; PULSE 70; RESP 19; TEMP 98.1
[2024-02-17] MEDS ORDERED: COUMADIN PO SCH (17:00)
[2024-02-17] MEDS ORDERED: LIPITOR PO SCH (17:00)
== END 2024-02-17 13:30 | disposition home or self-care (01) ==
LOC: SCU 01:36 → ED 01:36 → SCU 03:50
PROVIDERS: ADMIT Hospitalist; ATTEND Physician Assistant
DX: Z86.718 Personal history of other venous thrombosis and embolism; I73.9 Peripheral vascular disease, unspecified; E11.65 Type 2 diabetes mellitus with hyperglycemia; Z79.01 Long term (current) use of anticoagulants; Z79.899 Other long term (current) drug therapy; J96.01 Acute respiratory failure with hypoxia; Z72.0 Tobacco use; Z51.81 Encounter for therapeutic drug level monitoring; E86.0 Dehydration; D64.9 Anemia, unspecified; I48.91 Unspecified atrial fibrillation; Z79.84 Long term (current) use of oral hypoglycemic drugs; U07.1 COVID-19; I10 Essential (primary) hypertension; Z86.73 Personal history of transient ischemic attack (TIA), and cerebral infarction without residual deficits; E78.5 Hyperlipidemia, unspecified